=== PATIENT | male | born 1935 | race Caucasian/White ===

== ENCOUNTER → 2018-08-17 08:57 | Outpatient (CLI) | payer MEDICARE, OTHER, SELFPAY ==
[2018-08-17 11:18] LABS: Add Manual Diff / Slide Review NO; Basophils Percent Auto 0.8 % (0-2); Eosinophils Percent Auto 3.3 % (2-4); Hematocrit 44.5 % (41-53); Hemoglobin 15.4 g/dL (13.5-17.5); Lymphocytes Percent Auto 20.9 % (25-40); Mean Corpuscular HGB Conc 34.5 % (30-36); Mean Corpuscular Volume 101.5 fL (80-100); Monocytes Percent Auto 11.5 % (3-14); Neutrophils Absolute Auto 3000 /uL (3000-5900); Neutrophils Percent Auto 63.5 % (50-75); Platelet Count 146 X10^3/uL (150-400); Red Blood Cell Count 4.38 X10^6/uL (4.5-5.9); Red Cell Distribution Width 13.6 % (11.6-14.8); White Blood Cell Count 4.8 X10^3/uL (4.5-11.0)
[2018-08-17 12:11] LABS: BUN Creatinine Ratio 11.7 (6-22); Blood Urea Nitrogen 14 mg/dL (9-20); Carbon Dioxide 26 mmol/L (22-32); Chloride 107 mmol/L (98-107); Glucose 94 mg/dL (80-110); HEMOLYSIS < 15 (0-50); Potassium 4.6 mmol/L (3.4-5.1); Sodium 145 mmol/L (137-145)
== END ==
PROVIDERS: PCP Internal Medicine; Visit Provider Internal Medicine
DX: N18.9 Chronic kidney disease, unspecified (principal); I10 Essential (primary) hypertension; D69.6 Thrombocytopenia, unspecified
CPT/HCPCS: 36415; 80048; 85025

== ENCOUNTER 2019-02-03 06:34 | Emergency (ER) | payer MEDICARE, OTHER, SELFPAY ==
[2019-02-03 06:48] VITALS: BP 175/101; PULSE 72; RESP 18; TEMP 36.6; O2SAT 98; BMI 24.4
--- NOTE | 2019-02-03 06:59 | ED_ITS ---
HPI - Epistaxis <Phillip Rosen DO - Last Filed: 02/03/19 18:18> General Chief complaint: Nasal Problem Stated complaint: nose bleed Time Seen by Provider: 02/03/19 06:54 Source: patient and EMS Mode of arrival: EMS Limitations: no limitations History of Present Illness HPI Narrative: Patient is an 83-year-old male here for evaluation of a nosebleed. He states that he has never had a nosebleed in the past. He is not on any anticoagulation. He stated that he woke up this morning with bleeding. He states that was coming out of both sides of his nose. He attempted to stop it at home with pressure but was unable to. He called 911. When EMS arrived they used Afrin which seemed to improve his symptoms. They also gave him 1 nitro pill for a blood pressure with a systolic greater than 200. Patient does have a history of blood pressure but he states he takes at home and is normally not greater than 140 systolic. Patient denies any trauma. Related Data Home Medications Medication Instructions Recorded Confirmed metoprolol succinate [Toprol XL] 50 mg PO QDAY #0 06/07/12 carvedilol [Coreg] #0 08/03/16 lisinopril 10 mg PO QDAY #0 08/17/16 Allergies Allergy/AdvReac Type Severity Reaction Status Date / Time No Known Drug Allergies Allergy Verified 02/03/19 06:55 Review of Systems <Phillip Rosen DO - Last Filed: 02/03/19 18:18> Constitutional Denies fever(s) and Denies headache(s) ENT Ears, Nose, Mouth, and Throat: Denies headache(s), Reports epistaxis and Denies sore throat Cardiovascular Denies chest pain and Denies dyspnea Respiratory Denies dyspnea Gastrointestinal Gastrointestinal: Denies abdominal pain and Denies nausea Integumentary/Breasts Denies rash Neurologic Denies headache(s) Hematologic/Lymphatic Denies easy bleeding and Reports easy bruising PFSH <Phillip Rosen DO - Last Filed: 02/03/19 18:18> Medical History Hypertension (Acute) Thrombocytopenia (Acute) Social History Smoking Status: Former smoker Social History (Reviewed 02/03/19 @ 06:58 by DAVEY Martino Smoking Status: Former smoker Exam <Phillip Rosen DO - Last Filed: 02/03/19 18:18> Initial Vital Signs Initial Vital Signs: Vital Signs Temperature 98 F 02/03/19 06:48 Pulse Rate 72 02/03/19 06:48 Respiratory Rate 18 02/03/19 06:48 Blood Pressure 175/101 H 02/03/19 06:48 Pulse Oximetry 98 02/03/19 06:48 Const General: cooperative, comfortable, well developed, well groomed and No acute distress Orientation: alert, awake and oriented x3 HENMT Head: normal to inspection and normocephalic Nose: external nose normal, nares normal, septum normal, No epistaxis and No nasal discharge Face and sinus: normal facial exam Mouth: oral mucosae normal Throat: posterior oropharynx normal Resp Effort & Inspection: normal respiratory effort Auscultation: clear to auscultation bilaterally Cardio Rate: regular rate Pulses: radial pulses present Skin Lesions: no lesions Rashes: no rashes Psych Appearance: grossly normal and well kempt <DO Jonathan Rueda Last Filed: 02/03/19 08:26> Initial Vital Signs Initial Vital Signs: Vital Signs Temperature 98 F 02/03/19 06:48 Pulse Rate 72 02/03/19 06:48 Respiratory Rate 18 02/03/19 06:48 Blood Pressure 175/101 H 02/03/19 06:48 Pulse Oximetry 98 02/03/19 06:48 Course <DO Jonathan Martino Last Filed: 02/03/19 18:18> Orders Ordered: ED Orders 02/03/19 07:15 Basic Metabolic Panel Stat Complete Blood Count AUTO DIFF Stat Partial Thromboplastin Time Stat Prothrombin Time INR Stat Vital Signs - 8 hr 02/03/19 06:48 02/03/19 07:40 02/03/19 07:43 Temperature 98 F Pulse Rate 72 63 Respiratory Rate 18 18 Blood Pressure 175/101 H Blood Pressure [Right Arm] 172/87 H Pulse Oximetry 98 97 02/03/19 08:12 02/03/19 08:17 Temperature Pulse Rate 63 66 Respiratory Rate 16 20 Blood Pressure Blood Pressure [Right Arm] 150/92 H Pulse Oximetry 95 96 <DO Jonathan Rueda Last Filed: 02/03/19 08:26> Orders Ordered: ED Orders 02/03/19 07:15 Basic Metabolic Panel Stat Complete Blood Count AUTO DIFF Stat Partial Thromboplastin Time Stat Prothrombin Time INR Stat Vital Signs - 8 hr 02/03/19 06:48 02/03/19 07:40 02/03/19 07:43 Temperature 98 F Pulse Rate 72 63 Respiratory Rate 18 18 Blood Pressure 175/101 H Blood Pressure [Right Arm] 172/87 H Pulse Oximetry 98 97 02/03/19 08:12 02/03/19 08:17 Temperature Pulse Rate 63 66 Respiratory Rate 16 20 Blood Pressure Blood Pressure [Right Arm] 150/92 H Pulse Oximetry 95 96 MDM - Epistaxis <Phillip Rosen DO - Last Filed: 02/03/19 18:18> Lab Data Result diagrams: 02/03/19 07:15 02/03/19 07:15 Lab Results 02/03/19 02/03/19 02/03/19 Range/Units 07:15 07:15 07:15 WBC 4.3 L (4.5-11.0) X10^3/uL RBC 4.32 L (4.5-5.9) X10^6/uL Hgb 15.2 (13.5-17.5) g/dL Hct 42.8 (41-53) % MCV 99.2 (80-100) fL MCH 35.1 H (26-34) PG MCHC 35.4 (30-36) % RDW 12.8 (11.6-14.8) % Plt Count 139 L (150-400) X10^3/uL Neut % (Auto) 63.7 (50-75) % Lymph % (Auto) 21.5 L (25-40) % [place] % (Auto) 11.1 (3-14) % Eos % (Auto) 3.2 (2-4) % Baso % (Auto) 0.5 (0-2) % Neut # (Auto) 2800 (2223-9857) /uL Lymph # (Auto) 900 L (8808-1456) /uL [place] # (Auto) 500 (0-900) /uL Eos # (Auto) 100 (0-450) /uL Baso # (Auto) 0 (0-100) /uL PT 11.1 (10.1-12.7) SECONDS INR 1.0 (0.9-1.3) APTT 30 (26.4-36.2) SECONDS Sodium 139 (137-145) mmol/L Potassium 4.4 (3.4-5.1) mmol/L Chloride 107 (98-107) mmol/L Carbon Dioxide 24 (22-32) mmol/L BUN 19 (9-20) mg/dL Creatinine 1.20 (0.66-1.25) mg/dL Estimated GFR 57.8 L (>60) mL/min BUN/Creatinine Ratio 15.8 (6-22) Glucose 113 H (80-110) mg/dL Calcium 9.0 (8.4-10.2) mg/dL MDM Narrative Medical decision making narrative: Patient continues to be slightly hypertensive however is not having a nosebleed time my evaluation. Given his history of thrombocytopenia will check coags and CBC. Care turned over to Dr. Kaufman to follow up on labs and disposition. <Brain Kaufman, - Last Filed: 02/03/19 08:26> Lab Data Lab Results 02/03/19 02/03/19 02/03/19 Range/Units 07:15 07:15 07:15 WBC 4.3 L (4.5-11.0) X10^3/uL RBC 4.32 L (4.5-5.9) X10^6/uL Hgb 15.2 (13.5-17.5) g/dL Hct 42.8 (41-53) % MCV 99.2 (80-100) fL MCH 35.1 H (26-34) PG MCHC 35.4 (30-36) % RDW 12.8 (11.6-14.8) % Plt Count 139 L (150-400) X10^3/uL Neut % (Auto) 63.7 (50-75) % Lymph % (Auto) 21.5 L (25-40) % [place] % (Auto) 11.1 (3-14) % Eos % (Auto) 3.2 (2-4) % Baso % (Auto) 0.5 (0-2) % Neut # (Auto) 2800 (2003-5109) /uL Lymph # (Auto) 900 L (6050-8002) /uL [place] # (Auto) 500 (0-900) /uL Eos # (Auto) 100 (0-450) /uL Baso # (Auto) 0 (0-100) /uL PT 11.1 (10.1-12.7) SECONDS INR 1.0 (0.9-1.3) APTT 30 (26.4-36.2) SECONDS Sodium 139 (137-145) mmol/L Potassium 4.4 (3.4-5.1) mmol/L Chloride 107 (98-107) mmol/L Carbon Dioxide 24 (22-32) mmol/L BUN 19 (9-20) mg/dL Creatinine 1.20 (0.66-1.25) mg/dL Estimated GFR 57.8 L (>60) mL/min BUN/Creatinine Ratio 15.8 (6-22) Glucose 113 H (80-110) mg/dL Calcium 9.0 (8.4-10.2) mg/dL MDM Narrative Medical decision making narrative: Patient received in sign-out from other provider at the end of their shift. I have performed an independent history and physical and have no significant additional findings. Patient was observed for over an hour in the department, ambulated twice and had no recurrence of bl eeding. Exam noted fresh blood with minimal clots in the nares and no active bleeding. Patient denies swallowing any blood. Labs reviewed and unremarkable. patient remained slightly hypertensive but asymptomatic. Patient and given extensive return precautions and both verbalized their understanding of these precautions. Discharge plan discussed and agreed upon Discharge Plan Departure Patient Disposition: Home Clinical Impression: Epistaxis Discharge Date/Time: 02/03/19 08:34 Interventions: ED Discharge Assessment Last Done: 02/03/19 08:34 Instructions: DI for Nosebleed Activity Restrictions/Additional Instructions: *You have been diagnosed with [ acute anterior epistaxis ] *What to do: * do not blow your nose, stick your finger in her nose, or disturb nose for the next 24 hr. If you must sneeze please sneeze out your mouth like we talked about *Follow up with your primary care provider or ENT doctor in 2-3 days, call for an appointment. Let them know you were seen in the Emergency Department and that we ask that you be seen in follow up *Return to ER if you should have any new, worsening or concerning symptoms * if you are bleeding starts again at home please place a portion of a cotton ball in your nostril and squirt some of the Afrin you were given in your nose. Apply the nose clamp and uses a watch or o'clock to time yourself for 15 min. At the end 15 min recheck for bleeding, if you continue to bleed please repeat the process for another 15 min. If at the end of 30 min you still have bleeding you should return to the emergency department Prescriptions: No Action metoprolol succinate [Toprol XL] 50 MG tablet extended release 24 hr 50 mg PO QDAY Qty: 0 RF: 0 carvedilol [Coreg] 25 MG tablet Qty: 0 RF: 0 lisinopril 10 MG tablet 10 mg PO QDAY Qty: 0 RF: 0 Referrals: Pee Mason MD [Physician] -
[2019-02-03 07:24] LABS: Add Manual Diff / Slide Review NO; Basophils Absolute Auto 0 /uL (0-100); Basophils Percent Auto 0.5 % (0-2); Eosinophils Absolute Auto 100 /uL (0-450); Eosinophils Percent Auto 3.2 % (2-4); Hematocrit 42.8 % (41-53); Hemoglobin 15.2 g/dL (13.5-17.5); Lymphocytes Absolute Auto 900 /uL (1100-4500); Lymphocytes Percent Auto 21.5 % (25-40); Mean Corpuscular HGB Conc 35.4 % (30-36); Mean Corpuscular Hemoglobin 35.1 PG (26-34); Mean Corpuscular Volume 99.2 fL (80-100); Monocytes Absolute Auto 500 /uL (0-900); Monocytes Percent Auto 11.1 % (3-14); Neutrophils Absolute Auto 2800 /uL (1500-7000); Neutrophils Percent Auto 63.7 % (50-75); Platelet Count 139 X10^3/uL (150-400); Red Blood Cell Count 4.32 X10^6/uL (4.5-5.9); Red Cell Distribution Width 12.8 % (11.6-14.8); White Blood Cell Count 4.3 X10^3/uL (4.5-11.0)
[2019-02-03 07:38] LABS: Prothrombin Time 11.1 SECONDS (10.1-12.7)
[2019-02-03 07:40] VITALS: PULSE 63; RESP 18; O2SAT 97
[2019-02-03 07:41] LABS: PTT Partial Thromboplastin Tim 30 SECONDS (26.4-36.2)
[2019-02-03 07:42] LABS: BUN Creatinine Ratio 15.8 (6-22); Blood Urea Nitrogen 19 mg/dL (9-20); Carbon Dioxide 24 mmol/L (22-32); Chloride 107 mmol/L (98-107); Estimated Glomerular Filt Rate 57.8 mL/min (>60); Glucose 113 mg/dL (80-110); HEMOLYSIS < 15 (0-50); Potassium 4.4 mmol/L (3.4-5.1); Sodium 139 mmol/L (137-145)
[2019-02-03 07:43] VITALS: BP 172/87
[2019-02-03 08:12] VITALS: BP 150/92; PULSE 63; RESP 16; O2SAT 95
[2019-02-03 08:17] VITALS: PULSE 66; RESP 20; O2SAT 96
--- NOTE | 2019-02-03 08:18 | PC.NURSE ---
Patient was able to get up and walk around the ER without any nose bleeds.
[2019-02-03 08:34] VITALS: BP 150/92; PULSE 65; RESP 18; O2SAT 95
== END 2019-02-03 08:34 | disposition home or self-care (01) ==
PROVIDERS: Emergency Medicine; Emergency Provider Emergency Medicine; PCP Internal Medicine
DX: R04.0 Epistaxis (principal); I10 Essential (primary) hypertension
CPT/HCPCS: 36415; 80048; 85025; 85610; 85730; 99283

== ENCOUNTER → 2019-02-20 09:46 | Outpatient (CLI) | payer MEDICARE, OTHER, SELFPAY ==
[2019-02-20 10:26] LABS: Add Manual Diff / Slide Review NO; Basophils Absolute Auto 0 /uL (0-100); Basophils Percent Auto 0.8 % (0-2); Eosinophils Absolute Auto 100 /uL (0-450); Eosinophils Percent Auto 2.7 % (2-4); Hematocrit 43.6 % (41-53); Hemoglobin 15.1 g/dL (13.5-17.5); Lymphocytes Absolute Auto 1200 /uL (1100-4500); Lymphocytes Percent Auto 29.2 % (25-40); Mean Corpuscular HGB Conc 34.7 % (30-36); Mean Corpuscular Volume 100.7 fL (80-100); Monocytes Absolute Auto 500 /uL (0-900); Monocytes Percent Auto 11.9 % (3-14); Neutrophils Absolute Auto 2300 /uL (1500-7000); Neutrophils Percent Auto 55.4 % (50-75); Platelet Count 155 X10^3/uL (150-400); Red Blood Cell Count 4.33 X10^6/uL (4.5-5.9); Red Cell Distribution Width 13.2 % (11.6-14.8); White Blood Cell Count 4.1 X10^3/uL (4.5-11.0)
[2019-02-20 10:52] LABS: Blood Urea Nitrogen 18 mg/dL (9-20); Calcium 9.3 mg/dL (8.4-10.2); Carbon Dioxide 24 mmol/L (22-32); Chloride 106 mmol/L (98-107); Estimated Glomerular Filt Rate 57.8 mL/min (>60); Glucose 100 mg/dL (80-110); HEMOLYSIS < 15 (0-50); Potassium 4.1 mmol/L (3.4-5.1); Sodium 139 mmol/L (137-145)
== END ==
PROVIDERS: PCP Internal Medicine; Visit Provider Internal Medicine
DX: N18.9 Chronic kidney disease, unspecified (principal); D70.8 Other neutropenia
CPT/HCPCS: 36415; 80048; 85025

== ENCOUNTER → 2019-08-13 08:20 | Outpatient (CLI) | payer MEDICARE, OTHER, SELFPAY ==
[2019-08-13 09:02] LABS: Add Manual Diff / Slide Review NO; Basophils Absolute Auto 0 /uL (0-100); Basophils Percent Auto 0.8 % (0-2); Eosinophils Absolute Auto 100 /uL (0-450); Eosinophils Percent Auto 2.6 % (2-4); Hematocrit 46.1 % (41-53); Lymphocytes Absolute Auto 1100 /uL (1100-4500); Lymphocytes Percent Auto 25.3 % (25-40); Mean Corpuscular HGB Conc 34.6 % (30-36); Mean Corpuscular Hemoglobin 35.4 PG (26-34); Mean Corpuscular Volume 102.1 fL (80-100); Monocytes Absolute Auto 600 /uL (0-900); Neutrophils Absolute Auto 2500 /uL (1500-7000); Neutrophils Percent Auto 57.3 % (50-75); Platelet Count 144 X10^3/uL (150-400); Red Blood Cell Count 4.51 X10^6/uL (4.5-5.9); Red Cell Distribution Width 13.3 % (11.6-14.8); White Blood Cell Count 4.4 X10^3/uL (4.5-11.0)
[2019-08-13 09:15] LABS: BUN Creatinine Ratio 13.8 (6-22); Blood Urea Nitrogen 18 mg/dL (9-20); Calcium 9.5 mg/dL (8.4-10.2); Carbon Dioxide 25 mmol/L (22-32); Chloride 106 mmol/L (98-107); Estimated Glomerular Filt Rate 52.7 mL/min (>60); Glucose 109 mg/dL (80-110); HEMOLYSIS < 15 (0-50); Potassium 4.6 mmol/L (3.4-5.1); Sodium 140 mmol/L (137-145)
== END ==
PROVIDERS: PCP Internal Medicine; Visit Provider Internal Medicine
DX: N18.9 Chronic kidney disease, unspecified (principal); D70.8 Other neutropenia
CPT/HCPCS: 36415; 80048; 85025

== ENCOUNTER → 2019-08-27 11:44 | Outpatient (CLI) | payer MEDICARE, OTHER, SELFPAY ==
--- NOTE | 2019-08-27 | DI.CT.S_ITS ---
PROCEDURE: CT CHEST ABD PEL W CON INDICATIONS: Enlarged lymph nodes, unspecified TECHNIQUE: After the administration of oral and intravenous contrast, 5 mm thick sections acquired from the lung apices to the symphysis. 5 mm coronal and sagittal reformats were performed, with additional 7 mm coronal MIP reformats through the lungs. For radiation dose reduction, the following was used: automated exposure control, adjustment of mA and/or kV according to patient size. COMPARISON: None. FINDINGS: Image quality: Excellent. CHEST: Lungs and pleura: There is a 5 mm nodule in the left upper lobe (series 3 image 164). No acute airspace opacities. No pleural effusions or pneumothorax. Central and peripheral airways appear patent and normal in caliber. Mediastinum: Heart size is normal. No pericardial effusion. No mediastinal or hilar adenopathy by size criteria. Thoracic aorta and central pulmonary arteries are normal in size. Esophagus is normal in caliber. No hiatal hernia. Chest wall: No axillary or supraclavicular adenopathy by size criteria. Thyroid gland is normal. ABDOMEN: Solid organs: Liver is normal in size and enhancement. Gallbladder is normal. Biliary system is non dilated. Pancreas enhances normally. Spleen is normal in size and enhancement. No adrenal nodules. Kidneys demonstrate normal size and enhancement, without hydronephrosis. Peritoneum and bowel: Possible focal thickening of cecum. Bowel loops demonstrate normal wall thickness and caliber. There are colonic diverticula. No findings to suggest acute diverticulitis. No free fluid or air. Nodes and vessels: No retroperitoneal or mesenteric adenopathy by size criteria. Aorta and inferior vena cava are normal in size. Moderate to severe atherosclerosis. Miscellaneous: No ventral hernias. PELVIS: Genitourinary: Bladder wall thickness is normal. Enlarged prostate. Miscellaneous: There is a 1.6 x 2.1 cm right inguinal lymph node. Bones: No suspicious bony lesions. No vertebral body compression fractures. IMPRESSION: 1. Enlarged right inguinal lymph node. 2. No lymphadenopathy elsewhere. 3. Possible short segment focal thickening of cecum versus artifact. Recommend endoscopic examination for further evaluation. 4. A 5 mm left upper lobe lung nodule. Please see enclosed followup clinician. 5. Enlarged prostate. 6. Possible focal thickening of cecum and artifact from peristalsis. Recommend lower endoscopy for further evaluation. Fleischner Society criteria for SOLID lung nodule followup. Nodule size (mm)Low-risk patientHigh-risk patient?4No follow-up neededFollow-up at 12 mo; if no change, no further follow-up>6-9Tfopjg-be CT at 12 mo; if no change, no further follow-up needed.Initial follow-up CT at 6-12 mo, then 18-24 mo if no change. >6-8Initial follow-up CT at 6-12 mo, then 18-24 mo if no change. Initial follow-up CT at 3-6 mo, then 9-12 mo and 24 mo if no change. >8Follow-up CT at 3, 9, 24 mo. Or PET and/or biopsy.Same as for low-risk pts. Fleischner Society criteria for SUB-SOLID lung nodule followup. Solitary pure ground-glass nodules5 mm or lessNo followup needed. >5 mm3 mo follow-up CT to confirm persistence. Then annual CT for 3 years. Part-solid nodules3 mo follow-up CT to confirm persistence. If persistent with solid component <5 mm, annual CT for at least 3 years. If solid component is 5 mm or more, biopsy or surgical resection. Consider PET-CT for lesions > 10 mm. Multiple sub-solid nodulesPure ground glass nodules [address] at 2 and 4 years. Pure ground glass nodules >5 mm without dominant lesion. [address] to confirm persistence, then annual followup CT for at least 3 years. Dominant nodule(s) with part-solid or solid component. [address] to confirm persistence. If persistent, consider biopsy or surgical resection, ken if lesions have >5 mm solid component. Dictated by: Jas Urban M.D. on 08/27/2019 at 15:59 Approved by: Jas Urban M.D. on 08/27/2019 at 17:57
--- NOTE | 2019-09-17 14:44 | ONC.MSW ---
Description: T/C Activity: RECORDS MANAGEMENT CLERK returned pt's call re: new referral and questions. Left message requesting return call.
== END ==
PROVIDERS: PCP Internal Medicine; Visit Provider Internal Medicine
DX: R59.0 Localized enlarged lymph nodes (principal); K57.90 Diverticulosis of intestine, part unspecified, without perforation or abscess without bleeding; R91.1 Solitary pulmonary nodule; N40.0 Benign prostatic hyperplasia without lower urinary tract symptoms
CPT/HCPCS: 71260; 74177; Q9967

== ENCOUNTER 2019-09-03 09:36 | Day surgery (SDC) | payer MEDICARE, OTHER, SELFPAY ==
[2019-08-28 10:27] VITALS: BMI 26.7
[2019-09-03] VITALS (7 sets, daily range): BP systolic 112–162; BP diastolic 75–85; PULSE 54–73; RESP 11–16; TEMP 36.3–36.4; O2SAT 91–97; BMI 26.7
--- NOTE | 2019-09-03 | PATH_ITS ---
[facility] Accession Number: [id number] . 01 Material submitted: . PART A: lymph node - RIGHT INGUINAL LYMPH NODE PART B: lymph node - RIGHT INGUINAL LYMPH NODE . 01 Clinical history: . B: B PLUS FIXATIVE . 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 01 Comment: These findings correlate with the reported CD10 positive clonal B-cell population of small/intermediate size identified on a tandem flow cytometric analysis (see [phone]). . . 01 Electronically signed: . Jessica Alvarez MD, Pathologist NPI- [id number] . 01 Gross description: . (A) Received in formalin, labeled right inguinal lymph node, is a jesus rubbery lymph node (3.4 x 2.5 x 1.3 cm). Serially sectioned and entirely submitted in cassettes A1-A5. (B) Received in B-Plus Fix, labeled right inguinal lymph node, is a lui-white rubbery lymph node (2.1 x 1.8 x 1.2 cm). Serially sectioned and entirely submitted in cassettes B1-B3. . Note: Per the requisition, the following was also received: Slides and RPMI x2. ([id number]) /[facility] 09/04/2019 1638 Local . 01 Microscopic: . Sections demonstrate lymphoid tissue with effacement of the usual architecture; the capsule is focally effaced. The tissue has a follicular pattern, with poorly defined densely packed follicles and ill-defined mantle zones. The follicles appear solid, lacking polarization and without a prominent starry-jonatan pattern. Cells are small to medium sized, with angulated nuclei, inconspicuous nucleoli, and scant cytoplasm (centrocytes); admixed are some larger cells with round/oval nuclei, vesicular chromatin and visible peripheral nucleoli (centroblasts). There is no evidence of active inflammation, granulomata, Erick-Ginny/Hodgkin cells, eosinophilia, fibrous sclerosis, or features of metastasis. . In order to more fully characterize this process, immunohistochemical stains were indicated; these were performed on Block A1. The controls reacted appropriately. See below for Laboratory information. . Findings: CD3: Small lymphocytes positive (membranous/strong); predominant in parafollicular zones. Scattered T-cells in follicles. CD10: Small lymphocytes positive (membranous/strong); predominant in follicles. Scattered B-cells in parafollicular areas. PAX5: Small lymphocytes positive (membranous/strong); greatest density in follicles; mantle zones visible. Also present in paracortical T-zones in lesser density. CD21: Greatly expanded LONGTERM networks present within the follicles (membranous/moderate) BCL-2: Overwhelming positivity in follicles, mantle zones and in paracortical T-zones. (Cytoplasmic/strong). BCL-6: Positivity in follicles, mantle zones and, in lesser density, in small scattered cells in paracortical T-zones. (nuclear / moderate). Cyclin D1: Negative with positive internal control (nuclear/strong) . Ki-67: 10-15% overall; slightly greater in follicles (nuclear/strong) . 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 Technical Note: The immunohistochemistry stains reported were performed at [facility] ([address], [facility] [address]). They were developed and their performance characteristics determined by [employer] They have not been cleared or approved by the U.S. Food and Drug Administration, although such approval is not required for analyte-specific reagents of this type. . 01 Pathologist provided ICD-10: C82.90 . 01 CPT . 248394, 631913, S30694, L38227 Performed at: 01 [facility] [address], [place], [place] [id number] MD Artis Bolivar MD Phone: [phone]
[2019-09-03] MEDS: LACTATED RINGERS 1,000 ML 100 ML IV (10:22)
--- NOTE | 2019-09-03 10:49 | PM.PREOP ---
Pre-operative Note Interval Note History & Physical reviewed/Exam performed by Physician: Yes Changes to H&P: No
[2019-09-03] MEDS: CEFAZOLIN 2 GM/100 ML FROZ.PIGGY IV (11:08)
--- NOTE | 2019-09-03 11:24 | SUR.OPER ---
Supine on padded OR bed, head on pillow, arms secured on padded arm boards at <90 degrees abduction, legs uncrossed, safety belt at thigh, tape over blanket over lower legs.
[2019-09-03] MEDS: BUPIVACAINE 0.5% W/ EPI (PF) VIAL 30 ML INJ (11:31)
--- NOTE | 2019-09-03 11:32 | SUR.OPER ---
GLASSES IN LABELED BAG TO PACU WITH PATIENT
--- NOTE | 2019-09-03 12:16 | PM.OP.1 ---
Operative Date/Time/Diagnoses Date of procedure: 09/03/19 Time of procedure: 12:16 Pre-op diagnosis: Diffuse lymphadenopathy rule out lymphoma Post-op diagnosis: same Procedure & Clinicians Procedure: Excision of right inguinal lymph node Same procedure as scheduled: Yes Indications: Diagnostic Surgeon: Rudolph Kaufman Click Yes if Unassisted: Yes Anesthesia Type: General Operative Notes Findings: 4 by 2 cm lymph node right groin removed Closure Type: primary Specimen(s): other (Dry in alcohol slide. Specimens for flow cytometry. Formalin specimen.) Prosthetic devices, grafts, tissues, transplants, or devices: None Estimated Blood Loss (mL): 5 Blood products transfused: none Procedure in detail: The patient is placed supine on the operating room table and underwent general LMA anesthesia. He was prepped and draped in the usual fashion. Local anesthetic was infiltrated around the large lymph node. It vision made paralleling the crease in the groin was carried down through the subcu fat to the level lymph node. The tissue holding lymph node in place was all divided and 3 0 Vicryl ties and were used to tie everything whether it was vascular containing or not. This was done to reduce the risk of lymph leak.. The node was removed and submitted in specimen containers. The soft tissues reapproximated with interrupted 3 0 Vicryl. The skin was closed running 4 0 Vicryl subcuticular stitch and Steri-Strips. Complications: none Post-operative Condition: stable Disposition: PACU
== END 2019-09-03 13:21 | disposition home or self-care (01) ==
PROVIDERS: Family Provider Internal Medicine; PCP Internal Medicine; Visit Provider Specialist
PROC: (CPT 38531; principal; 2019-09-03 11:00)
DX: C82.95 Follicular lymphoma, unspecified, lymph nodes of inguinal region and lower limb (principal); I10 Essential (primary) hypertension
CPT/HCPCS: 38531; J0690; J2250; J2405; J2704; J3010

== ENCOUNTER → 2020-05-19 12:05 | Outpatient (CLI) | payer MEDICARE, OTHER, SELFPAY ==
--- NOTE | 2020-05-19 12:06 | DI.US.S_ITS ---
PROCEDURE: US EXTREMITY NONVASC UPPER LT INDICATIONS: LEFT FOREARM SOFT TISSUE MASS TECHNIQUE: Real-time scanning was performed of the left wrist , with image documentation. COMPARISON: None. FINDINGS: Complex fluid collection corresponding to the palpable abnormality measuring 5.9 x 0.8 by 2.9 cm with internal fluid component containing fine low level echoes. Doppler assessment demonstrates no vascularity. IMPRESSION: Complex fluid collection corresponding to the palpable abnormality. Findings are nonspecific and differential would include both benign and malignant etiologies. If indicated, soft tissue MRI could be performed for further assessment. Dictated by: Maixm BLANCO Interpreted: Shade Denson MD on 05/19/2020 at 14:52 Approved by: Shade Denson M.D. on 05/19/2020 at 17:40
== END ==
PROVIDERS: Family Provider Internal Medicine; PCP Internal Medicine; Referring Provider Internal Medicine Hematology & Oncology; Visit Provider Internal Medicine Hematology & Oncology
DX: R22.32 Localized swelling, mass and lump, left upper limb (principal)
CPT/HCPCS: 76882

== ENCOUNTER → 2020-05-27 13:06 | Outpatient (CLI) | payer MEDICARE, OTHER, SELFPAY ==
--- NOTE | 2020-05-27 13:19 | DI.CT.S_ITS ---
PROCEDURE: CT CHEST WO CON INDICATIONS: SOLITARY PULMONARY NODULE TECHNIQUE: Noncontrast 2.0-2.5 mm thick sections acquired from the pulmonary apices to the posterior costophrenic angles. 7 mm thick axial MIP and 5 mm coronal and sagittal reformats were then acquired. A low radiation dose technique was utilized. COMPARISON: [facility], CT, CT CHEST ABD PEL W CON, 08/27/2019, 12:27. FINDINGS: Image quality: Diagnostic, given the low radiation dose technique. Lungs and pleura: Right fissural nodule appears unchanged measuring approximately 6 mm. Unchanged to slightly decreased in size 4 mm right middle lobe pulmonary nodule on image 240. Scattered scarring/atelectasis. No acute consolidation. Airway thickening in keeping with nonspecific bronchitis and/or reactive airways disease. Partially calcified nodule in the right upper lobe is unchanged on image 19. Mediastinum: Heart size is normal. Coronary artery calcifications are present. No pericardial effusion. No mediastinal adenopathy by size criteria. Thoracic aorta and central pulmonary arteries are normal in size. Esophagus is normal in caliber. No hiatal hernia. Bones and chest wall: No suspicious bony lesions. No vertebral body compression fractures. No axillary or supraclavicular adenopathy by size criteria. Thyroid gland negative . Abdomen: Visualized upper abdomen solid organs and bowel loops appear normal in the absence of contrast. IMPRESSION: Overall, grossly stable appearance of multiple bilateral subcentimeter pulmonary nodules since 08/27/19. Recommend continued follow-up with [address] chest for definitive assessment. In Fleischner Society criteria for SOLID lung nodule followup. Nodule size (mm)Low-risk patientHigh-risk patient<6 (single or multiple)No routine followup.Optional CT at 12 months. 6-8 (single or multiple)CT at 6-12 months, then optional CT at 18-24 mo.CT at 6-12 months, then CT at 18-24 months. >8 (single)CT at 3 months, PET-CT, or biopsy. Same as for low-risk pts. >8 (multiple)CT at 3-6 months, then optional CT at 18-24 mo.CT at 3-6 months, then CT at 18-24 months. Fleischner Society criteria for SUB-SOLID lung nodule followup. Solitary pure ground-glass nodules<6 mm (ground glass or part solid)No followup needed. 6 mm or larger (ground glass)CT at 6-12 months to confirm persistence, then CT every 2 years until 5 years.6 mm or larger (part solid)CT at 3-6 months to confirm persistence, then annual CT until 5 years if unchanged and solid component remains <6 mm. Multiple sub-solid nodules<6 mmCT at 3-6 months, then CT consider at 2 & 4 years for high risk patients. [address] at 3-6 months. Subsequent management based on most suspicious lesions. Recommendations do not apply to lung cancer screening, patients with immunosuppression, or patients with known primary cancer. Dictated by: Boom Cameron M.D. on 05/27/2020 at 16:49 Approved by: Boom Cameron M.D. on 05/27/2020 at 16:58
== END ==
PROVIDERS: Family Provider Internal Medicine; PCP Internal Medicine; Referring Provider Internal Medicine; Visit Provider Internal Medicine
DX: R91.8 Other nonspecific abnormal finding of lung field (principal); I25.10 Atherosclerotic heart disease of native coronary artery without angina pectoris
CPT/HCPCS: 71250

== ENCOUNTER → 2020-07-03 15:39 | Outpatient (CLI) | payer MEDICARE, OTHER, SELFPAY ==
--- NOTE | 2020-07-03 | DI.MRI.S_ITS ---
PROCEDURE: MR WRIST LT WO CON INDICATIONS: PAIN IN LEFT WRIST. 2 MASSES TECHNIQUE: Noncontrast coronal proton density fast spin echo and T2 fast spin echo with fat saturation; coronal 3-D gradient echo, axial T1 spin echo and T2 fast spin echo with fat saturation, sagittal T1 spin echo through the wrist. COMPARISON: [facility], US, US EXTREMITY NONVASC UPPER LT, 05/19/2020, 12:22. FINDINGS: Image quality: Excellent. Bones and cartilage: Moderate osteoarthritic changes throughout wrist joints are seen with joint space narrowing, subchondral sclerosis and mild edema. Nonspecific small intraosseous cyst formation throughout visualized carpal bones are also seen. No fracture or dislocation. No evidence of avascular necrosis. No suspicious intraosseous lesion. Carpal ligaments: The scapholunate and lunotriquetral ligaments appear intact. In the absence of intra-articular contrast, the extrinsic carpal ligaments are not well identified. On sagittal images, the pisohamate ligament appears intact. Triangular fibrocartilage complex: There is suggestion of complex tear involving triangular fibrocartilage near its radial insertion with communicating fluid between radiocarpal joint and distal radial ulnar joint. The adjacent meniscal homolog appears normal in the absence of intra-articular contrast. The extensor carpi ulnaris tendon is normal in location and morphology. Tendons and soft tissues: The carpal tunnel structures appear normal, including the median nerve. The ulnar nerve appears normal within Guyon's canal. Large lobulated cystic area is seen surrounding extensor radialis longus and brevis tendons measures in aggregate 2 x 3.5 x 11.8 cm in size extending from distal radial shaft level to the level of 1st metacarpal base most likely represent severe tenosynovitis in this region. There is a smaller fluid signal area surrounding extensor pollicis longus tendon at the level of distal radius extending to the level of radiocarpal joint and measures up to 0.9 x 1.2 x 2.8 cm in size. IMPRESSION: 1. Large cystic structure surrounding left extensor radialis longus and brevis tendons measures 2 x 3.5 x 11.8 cm in size most likely represent severe tenosynovitis. No evidence of tendon rupture. 2. Smaller cystic structure measures 0.9 x 1.2 x 2.8 centimeters in size surrounding extensor pollicis longus tendon at the level of distal radius/radial carpal joint also likely represent tenosynovitis. 3. No solid appearing soft tissue mass. Rest of the wrist tendons are grossly intact. 4. Suggestive of complex ranula fibrocartilage tear near its radial insertion. Scapholunate and lunotriquetral ligaments are intact. 5. Moderate diffuse wrist joint osteoarthritis. No fracture or dislocation. Dictated by: Roderick Navarro M.D. on 07/03/2020 at 16:54 Approved by: Roderick Navarro M.D. on 07/03/2020 at 17:16
== END ==
PROVIDERS: Family Provider Internal Medicine; PCP Internal Medicine; Referring Provider Orthopaedic Surgery; Visit Provider Orthopaedic Surgery
DX: M25.532 Pain in left wrist (principal); M67.834 Other specified disorders of tendon, left wrist; M19.032 Primary osteoarthritis, left wrist
CPT/HCPCS: 73221

== ENCOUNTER → 2021-05-18 08:03 | Outpatient (CLI) | payer MEDICARE, OTHER, SELFPAY ==
--- NOTE | 2021-05-18 08:04 | DI.CT.S_ITS ---
PROCEDURE: CT CHEST WO CON INDICATIONS: pulmonary nodules TECHNIQUE: Noncontrast 2.0-2.5 mm thick sections acquired from the pulmonary apices to the posterior costophrenic angles. 7 mm thick axial MIP and 5 mm coronal and sagittal reformats were then acquired. A low radiation dose technique was utilized. COMPARISON: [facility], CT, CT CHEST WO CON, 05/27/2020, 13:13. FINDINGS: Image quality: Diagnostic, given the low radiation dose technique. Lungs and pleura: A few small pulmonary nodules. For example: -left upper lobe 0.7 x 0.6 cm, (3/99), previously 0.8 x 0.7 cm on 05/27/2020, and more remotely is 0.8 x 0.7 cm on 08/27/2019. -left upper lobe 0.5 cm, (3/178), previously 0.5 cm in 2019. -right major fissure 0.4 cm, (3/186), previously 0.6 cm in 2019. -right middle lobe 0.6 cm, (3/226), previously 0.6 cm in 2019. -right major fissure inferior thickening is unchanged. No new or enlarging pulmonary nodules. Moderate emphysematous change predominantly at the upper lobes. The central airways are clear. There is minimal bronchiectasis and bronchial wall thickening. Mild dependent subpleural reticular thickening. No pleural effusion. No pneumothorax. Mediastinum: Heart size is normal. Aortic valvular calcification, mild. Three-vessel coronary artery calcifications. No pericardial effusion. No mediastinal adenopathy by size criteria. Thoracic aorta and central pulmonary arteries are normal in size. Esophagus is normal in caliber. No hiatal hernia. Bones and chest wall: No suspicious bony lesions. Kyphosis. Suspect mild height loss at L1 partially visualized, unchanged. No axillary or supraclavicular adenopathy by size criteria. Thyroid gland is atrophic. Abdomen: Visualized upper abdomen solid organs and bowel loops appear normal in the absence of contrast. IMPRESSION: 1. Several stable pulmonary nodules. Largest measuring up to 0.7 cm in the left upper lobe, unchanged compared to August 2019. -consider 1 more follow-up CT chest in 1 year to demonstrate greater than 2 years stability. 2. No new or enlarging pulmonary nodules. 3. No enlarged lymph nodes identified. Fleischner Society criteria for SOLID lung nodule followup. Nodule size (mm)Low-risk patientHigh-risk patient<6 (single or multiple)No routine followup.Optional CT at 12 months. 6-8 (single or multiple)CT at 6-12 months, then optional CT at 18-24 mo.CT at 6-12 months, then CT at 18-24 months. >8 (single)CT at 3 months, PET-CT, or biopsy. Same as for low-risk pts. >8 (multiple)CT at 3-6 months, then optional CT at 18-24 mo.CT at 3-6 months, then CT at 18-24 months. Fleischner Society criteria for SUB-SOLID lung nodule followup. Solitary pure ground-glass nodules<6 mm (ground glass or part solid)No followup needed. 6 mm or larger (ground glass)CT at 6-12 months to confirm persistence, then CT every 2 years until 5 years.6 mm or larger (part solid)CT at 3-6 months to confirm persistence, then annual CT until 5 years if unchanged and solid component remains <6 mm. Multiple sub-solid nodules<6 mmCT at 3-6 months, then CT consider at 2 & 4 years for high risk patients. [address] at 3-6 months. Subsequent management based on most suspicious lesions. Recommendations do not apply to lung cancer screening, patients with immunosuppression, or patients with known primary cancer. Dictated by: Lucas Pedraza M.D. on 05/18/2021 at 8:35 Approved by: Lucas Pedraza M.D. on 05/18/2021 at 8:50
== END ==
PROVIDERS: Family Provider Internal Medicine; PCP Internal Medicine; Referring Provider Internal Medicine Hematology & Oncology; Visit Provider Internal Medicine Hematology & Oncology
DX: R91.8 Other nonspecific abnormal finding of lung field (principal)
CPT/HCPCS: 71250

== ENCOUNTER 2022-03-30 09:00 | Outpatient (RCR) | payer MEDICARE, OTHER, SELFPAY ==
--- NOTE | 2022-01-21 14:16 | PT.OIE ---
Current Diagnoses Unsteadiness on feet (01/25/22) Other abnormalities of gait and mobility (01/25/22) Weakness (01/25/22) Past Medical History (Last Updated 08/29/19 @ 09:58 by Xuan Christensen RN) Easy bruisability Enlarged prostate History of left hip replacement Hx of appendectomy Hx of bilateral cataract extraction (~2015) Hx of cardiac arrhythmia Hx of cataract Hypertension Thrombocytopenia Past Surgical History (Last Updated 08/28/19 @ 10:34 by Xuan Christensen RN) History of left hip replacement Hx of appendectomy Hx of bilateral cataract extraction (~2015) Visit Care Team Role Provider Type Arslan Jacobs MD Attending Provider Non-Staff Family Provider Primary Care Provider Referring Provider Specialty: Internal Medicine Address: [address] [place] [address], [facility] Email: Physical Therapy Initial Evaluation PT-OP-A Visit Information Start: 01/18/22 17:13 Freq: Status: Active Protocol: Document 01/21/22 09:02 [facility] (Rec: 01/21/22 09:37 [facility] [id number]) Out-Patient Physical Therapy Visit Information Visit Information Visit Type Initial Evaluation Visit Start Time 09:02 Visit Stop Time 09:43 Total Visit Minutes 41 Visit Number 1 Evaluation Information Evaluation Date 01/21/22 Precautions Precautions HTN, history of BPPV and Meniere's, wears hearing aids and glasses with progressive lenses PT-OP-B Current Condition Start: 01/18/22 17:13 Freq: Status: Active Protocol: Document 01/21/22 09:02 [facility] (Rec: 01/21/22 09:37 [facility] [id number]) Current Condition History of Current Condition Onset Date 5 years Current Complaints difficulty with balance History of Current Condition 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 Patient reports balance difficulties, has had multiple almostfalls, no specific situations, concerned won't be able to get up if falls. If goes for a walk carries a cane. Staggering noted by PT comes and goes but isn't uncommon. Denies dizziness at this time because I know what to do to avoid it. No exercises besides going for walks; walks up to 2 miles per day. Lives with , has stairs with railing, bars in shower. Treatment Goals Patient/Caregiver Goals IMprove balance, be more comfortable walking. Prior Functional Status Baseline Function- ADL's Independent Baseline Function- Mobility Independent Baseline Function- Gait independent without device Baseline Function- Recreation/Hobbies walking Current Functional Impairments (Reported) Functional Limitations- ADL's balance concerns Functional Limitations- Mobility/Gait uses cane outdoors Functional Limitations- Recreation/ needs cane to walk outdoors. Hobbies PT-OP-C Subjective Start: 01/18/22 17:13 Freq: Status: Active Protocol: Document 01/21/22 09:02 [facility] (Rec: 01/21/22 09:57 [facility] [id number]) Patient Questionnaires ABC- Activity Specific Balance Confidence Scale ABC Score 49 OP-PT Pain Assessment Comments Pain Comments patient deniesw pain PT-OP-D Balance Start: 01/18/22 17:13 Freq: Status: Active Protocol: Document 01/21/22 09:02 [facility] (Rec: 01/21/22 09:57 [facility] [id number]) OP-PT Balance Assessment Sitting Balance Static Sitting Balance Ability Normal Dynamic Sitting Balance Ability Good Standing Balance Static Standing Balance Ability Normal Standing Balance Comments see gbalance assessments Balance Tests Abreu Balance Test Abreu Balance Test Score 36 Wilcox Fall Scale Copyright Permission PT-OP-G Mobility & Gait Start: 01/18/22 17:13 Freq: Status: Active Protocol: Document 01/21/22 09:02 [facility] (Rec: 01/25/22 14:16 [facility] [id number]) OP Mobility Evaluation Bed Mobility Rolling indep Supine to and from Sit indep Transfers Sit to Stand indep, min to no use of hands OP Gait Assessment Gait Gait Assistance Required: Independent Able to Maintain Weight Bearing Status No During Gait Gait Deviations General Gait Pattern Decreased Stride Length, Decreased Feet Clearance,Wide Based Gait Factors Limiting Gait Function Factors Limiting Gait Function Poor Balance Stair Climbing Evaluation Evaluation Level of Assist On Stairs Independent Devices Stair Climbing Assistive Devices Left Railing,Right Railing Technique/Endurance Stair Climbing Direction Ascend and Descend PT-OP-H Neuro Start: 01/18/22 17:13 Freq: Status: Active Protocol: Document 01/21/22 09:02 [facility] (Rec: 01/25/22 14:16 [facility] [id number]) Sensation Evaluation Gross Sensation Gross Sensation WNL PT-OP-M Strength Start: 01/18/22 17:13 Freq: Status: Active Protocol: Document 01/21/22 09:02 [facility] (Rec: 01/25/22 14:16 [facility] [id number]) Hip Strength Hip Manual Muscle Testing charleen Flexion (L2) 4 Good Extension (S1) 4- Good- Abduction 4- Good- External Rotation 4 Good Internal Rotation 4 Good Knee Strength Knee Manual Muscle Testing charleen Flexion (S2) 5 Normal Extension (L3) 5 Normal Ankle/Foot Strength Ankle and Foot Manual Muscle Testing charleen Dorsiflexion (L4) 4 Good Plantarflexion (S1) 4 Good PT-OP-Q Treatments Start: 01/18/22 17:13 Freq: Status: Active Protocol: Document 01/21/22 09:02 [facility] (Rec: 01/25/22 14:16 [facility] [id number]) Self-Care/Home Management Treatment Education Patient Education Home Exercise Program,Safety Other Education use cane or trekking poles when taking walks issued written handout for SLS , tandem stand, december PT-OP-T Assessment and Plan Start: 01/18/22 17:13 Freq: Status: Active Protocol: Document 01/21/22 09:02 [facility] (Rec: 01/25/22 14:16 [facility] [id number]) Physical Therapy Assessment Rehab Potential Rehabilitation Potential Good Evaluation Complexity Number of Personal Factors/Comorbidities 1-2 Impairments Impairments Balance,Gait,Strength Goals Two Impairment unsteady gait Impairment Dynamic gait index 16/24 Short Term Goal (STG) Improve DGI score to at least 20/24 as measure of improved safety with gait in the home and community STG Duration 02/20/22 Supervisor Drying Goal (LTG) Improve DGI score to at least 22/24 as measure of improved safety with gait in the home and community. Patient able to resume taking regular walks for exercise regularly, using assistive device as needed for safety. LTG Duration 03/23/22 One Impairment balance dysfunction, high risk for falls Impairment Abreu Balance score 36/56; high risk for falls Short Term Goal (STG) Improve Abreu to at least 46/56 as measure of decrease in fall risk STG Duration 02/20/22 Custodial Goal (LTG) Improve Abreu to at least 51/56 as measure of decrease in fall risk and improved mobility in the home and community LTG Duration 03/23/22 Assessment Summary Assessment Patient presents to PT with c/ o decreased confidence in his balance and gait, hoping PT might be able to help. His dynamic gait index score and Abreu Balance score measured at PT evaluation indicate he is at high risk for falls. Manual muscle testing revealed weakness throughout his core LE's. Feel he would benefit from PT for strengthening, balance re-training, and gait training to improve his safety with mobility both at home and in the community. Discussed POC and patient is in agreement. He was instructed in initial balance exercises and issued a written handout today, demonstrating good understanding. Physical Therapy Plan Frequency and Duration Frequency of Treatment 2x/Week Duration of Treatment 8 wks Plan of Care Start Date 01/21/22 Plan of Care End Date 03/23/22 Therapeutic Interventions Therapeutic Interventions Aquatic Therapy,Balance Training,Gait Training,Home Exercise Program,Neuromuscular Re-education,Self-Care/Home Management,Therapeutic Activities,Therapeutic Exercises Modalities Cold Pack/Ice Massage,Hot Packs Next Visit Focus/Plan Next Note Type Treatment Note Next Visit Plan Review HEP, progress with balance and gait training activities, LE and core strengthening as tolerated.
--- NOTE | 2022-01-21 14:17 | PT.OPPOC ---
Physical, Occupational & Speech Therapy At [facility] Current Diagnoses Unsteadiness on feet (01/25/22) Other abnormalities of gait and mobility (01/25/22) Weakness (01/25/22) Visit Care Team Role Provider Type Arslan Jacobs MD Attending Provider Non-Staff Family Provider Primary Care Provider Referring Provider Specialty: Internal Medicine Address: [address] [place] [address], [facility] Email: Plan Of Care PT-OP-T Assessment and Plan Start: 01/18/22 17:13 Freq: Status: Active Protocol: Document 01/21/22 09:02 [facility] (Rec: 01/25/22 14:16 [facility] [id number]) Physical Therapy Assessment Rehab Potential Rehabilitation Potential Good Evaluation Complexity Number of Personal Factors/Comorbidities 1-2 Impairments Impairments Balance,Gait,Strength Goals Two Impairment unsteady gait Impairment Dynamic gait index 16/24 Short Term Goal (STG) Improve DGI score to at least 20/24 as measure of improved safety with gait in the home and community STG Duration 02/20/22 Hydrogeology Professor Goal (LTG) Improve DGI score to at least 22/24 as measure of improved safety with gait in the home and community. Patient able to resume taking regular walks for exercise regularly, using assistive device as needed for safety. LTG Duration 03/23/22 One Impairment balance dysfunction, high risk for falls Impairment Abreu Balance score 36/56; high risk for falls Short Term Goal (STG) Improve Abreu to at least 46/56 as measure of decrease in fall risk STG Duration 02/20/22 Longterm Goal (LTG) Improve Abreu to at least 51/56 as measure of decrease in fall risk and improved mobility in the home and community LTG Duration 03/23/22 Assessment Summary Assessment Patient presents to PT with c/ o decreased confidence in his balance and gait, hoping PT might be able to help. His dynamic gait index score and Abreu Balance score measured at PT evaluation indicate he is at high risk for falls. Manual muscle testing revealed weakness throughout his core LE's. Feel he would benefit from PT for strengthening, balance re-training, and gait training to improve his safety with mobility both at home and in the community. Discussed POC and patient is in agreement. He was instructed in initial balance exercises and issued a written handout today, demonstrating good understanding. Physical Therapy Plan Frequency and Duration Frequency of Treatment 2x/Week Duration of Treatment 8 wks Plan of Care Start Date 01/21/22 Plan of Care End Date 03/23/22 Therapeutic Interventions Therapeutic Interventions Aquatic Therapy,Balance Training,Gait Training,Home Exercise Program,Neuromuscular Re-education,Self-Care/Home Management,Therapeutic Activities,Therapeutic Exercises Modalities Cold Pack/Ice Massage,Hot Packs Next Visit Focus/Plan Next Note Type Treatment Note Next Visit Plan Review HEP, progress with balance and gait training activities, LE and core strengthening as tolerated. Plan of Care Dates Plan of Care Start Date 01/21/22 Plan of Care End Date 03/23/22 Electronically Signed by: Melissa Romero, PT 01/25/22 [id number] Please Sign and Return: I have reviewed this Plan of Care and certify that the skilled therapy services above are required to meet the patient?s needs. Physician Signature Date Printed Name and Credentials Clinical Instructor Signature Printed Name and Credentials
--- NOTE | 2022-01-25 14:26 | PT.OTN ---
Current Diagnoses Unsteadiness on feet (01/25/22) Other abnormalities of gait and mobility (01/25/22) Weakness (01/25/22) Physical Therapy Treatment Note PT-OP-A Visit Information Start: 01/18/22 17:13 Freq: Status: Active Protocol: Document 01/25/22 14:18 [facility] (Rec: 01/25/22 14:26 [facility] [id number]) Out-Patient Physical Therapy Visit Information Visit Information Visit Type Treatment Note Visit Start Time 09:00 Visit Stop Time 09:45 Total Visit Minutes 45 Visit Number 2 Evaluation Information Evaluation Date 01/21/22 Precautions Precautions HTN, history of BPPV and Meniere's, wears hearing aids and glasses with progressive lenses PT-OP-B Current Condition Start: 01/18/22 17:13 Freq: Status: Active Protocol: Document 01/25/22 14:18 [facility] (Rec: 01/25/22 14:26 [facility] [id number]) Current Condition History of Current Condition Onset Date 5 years Current Complaints difficulty with balance History of Current Condition 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 Patient reports balance difficulties, has had multiple almostfalls, no specific situations, concerned won't be able to get up if falls. If goes for a walk carries a cane. Staggering noted by PT comes and goes but isn't uncommon. Denies dizziness at this time because I know what to do to avoid it. No exercises besides going for walks; walks up to 2 miles per day. Lives with , has stairs with railing, bars in shower. Treatment Goals Patient/Caregiver Goals IMprove balance, be more comfortable walking. PT-OP-C Subjective Start: 01/18/22 17:13 Freq: Status: Active Protocol: Document 01/25/22 14:18 [facility] (Rec: 01/25/22 14:26 [facility] [id number]) OP-PT Subjective Patient Comments Patient Comments No new c/o. Compliant to HEP: my balance isn't very good. PT-OP-D Balance Start: 01/18/22 17:13 Freq: Status: Active Protocol: Document 01/21/22 09:02 [facility]AK (Rec: 01/21/22 09:57 [facility] [id number]) OP-PT Balance Assessment Sitting Balance Static Sitting Balance Ability Normal Dynamic Sitting Balance Ability Good Standing Balance Static Standing Balance Ability Normal Standing Balance Comments see gbalance assessments Balance Tests Abreu Balance Test Abreu Balance Test Score 36 Wilcox Fall Scale Copyright Permission PT-OP-G Mobility & Gait Start: 01/18/22 17:13 Freq: Status: Active Protocol: Document 01/21/22 09:02 [facility] (Rec: 01/25/22 14:16 [facility] [id number]) OP Mobility Evaluation Bed Mobility Rolling indep Supine to and from Sit indep Transfers Sit to Stand indep, min to no use of hands OP Gait Assessment Gait Gait Assistance Required: Independent Able to Maintain Weight Bearing Status No During Gait Gait Deviations General Gait Pattern Decreased Stride Length, Decreased Feet Clearance,Wide Based Gait Factors Limiting Gait Function Factors Limiting Gait Function Poor Balance Stair Climbing Evaluation Evaluation Level of Assist On Stairs Independent Devices Stair Climbing Assistive Devices Left Railing,Right Railing Technique/Endurance Stair Climbing Direction Ascend and Descend PT-OP-H Neuro Start: 01/18/22 17:13 Freq: Status: Active Protocol: Document 01/21/22 09:02 [facility] (Rec: 01/25/22 14:16 [facility] [id number]) Sensation Evaluation Gross Sensation Gross Sensation WNL PT-OP-M Strength Start: 01/18/22 17:13 Freq: Status: Active Protocol: Document 01/21/22 09:02 [facility] (Rec: 01/25/22 14:16 [facility] [id number]) Hip Strength Hip Manual Muscle Testing charleen Flexion (L2) 4 Good Extension (S1) 4- Good- Abduction 4- Good- External Rotation 4 Good Internal Rotation 4 Good Knee Strength Knee Manual Muscle Testing charleen Flexion (S2) 5 Normal Extension (L3) 5 Normal Ankle/Foot Strength Ankle and Foot Manual Muscle Testing charleen Dorsiflexion (L4) 4 Good Plantarflexion (S1) 4 Good PT-OP-Q Treatments Start: 01/18/22 17:13 Freq: Status: Active Protocol: Document 01/25/22 14:18 [facility] (Rec: 01/25/22 14:26 [facility] [id number]) Cardio Equipment Recumbent Stepper (Sci-Fit) Duration (Minutes) 5 Resistance 1.5 Seat Position 13 Gait Training Gait Activity unpredictable commands Treatment Focus balance and safety Comments fwd, back, march, fast, slow, turn.... Neuro Re-Education Treatment Balance Activities tandem gait Reps/Duration 10 ft Comments difficulty outside of parallel bars, mod assist for balance dayo walking, toe walking Reps/Duration 20 ft Comments no UE support step-outs Details fwd,bck, side Reps/Duration 5 ea Comments parallel bars; cues for min UE support tiltboard Details balance and wt shift fwd/bck, side Reps/Duration 10 min Comments parallel bars; cues for min UE support foam stand Details WBOS EO and EC Equipment blue square foam Comments parallel bars; cues for min UE support hurdles Details forward and sideways Reps/Duration 2 laps ea Comments parallel bars; cues for min UE support backward walking Reps/Duration 2 laps Comments parallel bars; cues for min UE support marching Reps/Duration 2 laps Comments parallel bars; cues for min UE support Self-Care/Home Management Treatment Education Other Education continue HEP, add tandem gait, heel and toe walking PT-OP-T Assessment and Plan Start: 01/18/22 17:13 Freq: Status: Active Protocol: Document 01/25/22 14:18 [facility] (Rec: 01/25/22 14:26 [facility] [id number]) Physical Therapy Assessment Goals Two Impairment unsteady gait Impairment Dynamic gait index 16/24 Short Term Goal (STG) Improve DGI score to at least 20/24 as measure of improved safety with gait in the home and community STG Duration 02/20/22 Armature Connector Goal (LTG) Improve DGI score to at least 22/24 as measure of improved safety with gait in the home and community. Patient able to resume taking regular walks for exercise regularly, using assistive device as needed for safety. LTG Duration 03/23/22 One Impairment balance dysfunction, high risk for falls Impairment Abreu Balance score 36/56; high risk for falls Short Term Goal (STG) Improve Abreu to at least 46/56 as measure of decrease in fall risk STG Duration 02/20/22 Jail Goal (LTG) Improve Abreu to at least 51/56 as measure of decrease in fall risk and improved mobility in the home and community LTG Duration 03/23/22 Physical Therapy Plan Frequency and Duration Frequency of Treatment 2x/Week Duration of Treatment 8 wks Plan of Care Start Date 01/21/22 Plan of Care End Date 03/23/22 Therapeutic Interventions Therapeutic Interventions Aquatic Therapy,Balance Training,Gait Training,Home Exercise Program,Neuromuscular Re-education,Self-Care/Home Management,Therapeutic Activities,Therapeutic Exercises Modalities Cold Pack/Ice Massage,Hot Packs Next Visit Focus/Plan Next Note Type Treatment Note Next Visit Plan Assess tolerance for last session, progress balance, LE and core strengthening as tolerated.
--- NOTE | 2022-01-28 13:39 | PT.OTN ---
Current Diagnoses Unsteadiness on feet (01/28/22) Other abnormalities of gait and mobility (01/28/22) Weakness (01/28/22) Physical Therapy Treatment Note PT-OP-A Visit Information Start: 01/18/22 17:13 Freq: Status: Active Protocol: Document 01/28/22 09:01 [facility] (Rec: 01/28/22 09:48 [facility] [id number]) Out-Patient Physical Therapy Visit Information Visit Information Visit Type Treatment Note Visit Start Time 09:00 Visit Stop Time 09:45 Total Visit Minutes 45 Visit Number 3 Evaluation Information Evaluation Date 01/21/22 Precautions Precautions HTN, history of BPPV and Meniere's, wears hearing aids and glasses with progressive lenses PT-OP-B Current Condition Start: 01/18/22 17:13 Freq: Status: Active Protocol: Document 01/25/22 14:18 [facility] (Rec: 01/25/22 14:26 [facility] [id number]) Current Condition History of Current Condition Onset Date 5 years Current Complaints difficulty with balance History of Current Condition 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 Patient reports balance difficulties, has had multiple almostfalls, no specific situations, concerned won't be able to get up if falls. If goes for a walk carries a cane. Staggering noted by PT comes and goes but isn't uncommon. Denies dizziness at this time because I know what to do to avoid it. No exercises besides going for walks; walks up to 2 miles per day. Lives with , has stairs with railing, bars in shower. Treatment Goals Patient/Caregiver Goals IMprove balance, be more comfortable walking. PT-OP-C Subjective Start: 01/18/22 17:13 Freq: Status: Active Protocol: Document 01/28/22 09:01 [facility] (Rec: 01/28/22 13:39 [facility] [id number]) OP-PT Subjective Patient Comments Patient Comments States the day after PT his balance seemed better, and states yesterday I had to hold on more for everything. PT-OP-D Balance Start: 01/18/22 17:13 Freq: Status: Active Protocol: Document 01/21/22 09:02 [facility]AK (Rec: 01/21/22 09:57 [facility] [id number]) OP-PT Balance Assessment Sitting Balance Static Sitting Balance Ability Normal Dynamic Sitting Balance Ability Good Standing Balance Static Standing Balance Ability Normal Standing Balance Comments see gbalance assessments Balance Tests Abreu Balance Test Abreu Balance Test Score 36 Wilcox Fall Scale Copyright Permission PT-OP-G Mobility & Gait Start: 01/18/22 17:13 Freq: Status: Active Protocol: Document 01/21/22 09:02 [facility] (Rec: 01/25/22 14:16 [facility] [id number]) OP Mobility Evaluation Bed Mobility Rolling indep Supine to and from Sit indep Transfers Sit to Stand indep, min to no use of hands OP Gait Assessment Gait Gait Assistance Required: Independent Able to Maintain Weight Bearing Status No During Gait Gait Deviations General Gait Pattern Decreased Stride Length, Decreased Feet Clearance,Wide Based Gait Factors Limiting Gait Function Factors Limiting Gait Function Poor Balance Stair Climbing Evaluation Evaluation Level of Assist On Stairs Independent Devices Stair Climbing Assistive Devices Left Railing,Right Railing Technique/Endurance Stair Climbing Direction Ascend and Descend PT-OP-H Neuro Start: 01/18/22 17:13 Freq: Status: Active Protocol: Document 01/21/22 09:02 [facility] (Rec: 01/25/22 14:16 [facility] [id number]) Sensation Evaluation Gross Sensation Gross Sensation WNL PT-OP-M Strength Start: 01/18/22 17:13 Freq: Status: Active Protocol: Document 01/21/22 09:02 [facility] (Rec: 01/25/22 14:16 [facility] [id number]) Hip Strength Hip Manual Muscle Testing charleen Flexion (L2) 4 Good Extension (S1) 4- Good- Abduction 4- Good- External Rotation 4 Good Internal Rotation 4 Good Knee Strength Knee Manual Muscle Testing charleen Flexion (S2) 5 Normal Extension (L3) 5 Normal Ankle/Foot Strength Ankle and Foot Manual Muscle Testing charleen Dorsiflexion (L4) 4 Good Plantarflexion (S1) 4 Good PT-OP-Q Treatments Start: 01/18/22 17:13 Freq: Status: Active Protocol: Document 01/28/22 09:01 [facility] (Rec: 01/28/22 09:48 [facility] [id number]) Cardio Equipment Recumbent Stepper (Sci-Fit) Duration (Minutes) 8 Resistance 1.5 Seat Position 14 Gym Equipment Shuttle Balance chains green Details balance WBOS, NBOS, EO, EC, head turns EO, staggered feet EO Neuro Re-Education Treatment Balance Activities tandem gait Reps/Duration 10 ft x 2 forward and back Comments wall bar, mild UE support dayo walking, toe walking Details added to HEP foam stand Details WBOS EO and EC Equipment blue square foam Comments added balloon vb with CG to min assist for balance hurdles Details forward and sideways Surface firm Equipment 1# ankle weights Reps/Duration 2 laps ea Comments no UE support, min to mod PT support marching Equipment 1# ankle weights Reps/Duration 2 laps Self-Care/Home Management Treatment Education Patient Education Home Exercise Program,Safety Other Education updated HEP PT-OP-T Assessment and Plan Start: 01/18/22 17:13 Freq: Status: Active Protocol: Document 01/28/22 09:01 [facility] (Rec: 01/28/22 13:39 [facility]AK [id number]) Physical Therapy Assessment Impairments Impairments Balance,Gait,Strength Goals Two Impairment unsteady gait Impairment Dynamic gait index 16/24 Short Term Goal (STG) Improve DGI score to at least 20/24 as measure of improved safety with gait in the home and community STG Duration 02/20/22 Insulation Applicator Goal (LTG) Improve DGI score to at least 22/24 as measure of improved safety with gait in the home and community. Patient able to resume taking regular walks for exercise regularly, using assistive device as needed for safety. LTG Duration 03/23/22 One Impairment balance dysfunction, high risk for falls Impairment Abreu Balance score 36/56; high risk for falls Short Term Goal (STG) Improve Abreu to at least 46/56 as measure of decrease in fall risk STG Duration 02/20/22 Insulation Applicator Goal (LTG) Improve Abreu to at least 51/56 as measure of decrease in fall risk and improved mobility in the home and community LTG Duration 03/23/22 Assessment Summary Assessment Good tolerance for progression of ther ex; increased time and resistance on SciFit, added shuttle balance, did balance activities out of parallel bars. Added sit to stand, tandem gait, toe walking, and heel walking to HEP. Physical Therapy Plan Frequency and Duration Frequency of Treatment 2x/Week Duration of Treatment 8 wks Plan of Care Start Date 01/21/22 Plan of Care End Date 03/23/22 Therapeutic Interventions Therapeutic Interventions Aquatic Therapy,Balance Training,Gait Training,Home Exercise Program,Neuromuscular Re-education,Self-Care/Home Management,Therapeutic Activities,Therapeutic Exercises Modalities Cold Pack/Ice Massage,Hot Packs Next Visit Focus/Plan Next Note Type Treatment Note Next Visit Plan Continue progression of gait training, ther ex, balance retraining. Progress to harder setting on shuttle balance, consider sport cord, add step-ups/downs to obstacle course
--- NOTE | 2022-02-01 10:15 | PT.OTN ---
Current Diagnoses Unsteadiness on feet (02/01/22) Other abnormalities of gait and mobility (02/01/22) Weakness (02/01/22) Physical Therapy Treatment Note PT-OP-A Visit Information Start: 01/18/22 17:13 Freq: Status: Active Protocol: Document 02/01/22 09:23 [facility] (Rec: 02/01/22 10:14 [facility] [id number]) Out-Patient Physical Therapy Visit Information Visit Information Visit Type Treatment Note Visit Start Time 09:30 Visit Stop Time 10:10 Total Visit Minutes 40 Visit Number 4 Number of REDEVELOPMENT SPECIALIST Visits 1 Precautions Precautions HTN, history of BPPV and Meniere's, wears hearing aids and glasses with progressive lenses PT-OP-B Current Condition Start: 01/18/22 17:13 Freq: Status: Active Protocol: Document 01/25/22 14:18 [facility] (Rec: 01/25/22 14:26 [facility] [id number]) Current Condition History of Current Condition Onset Date 5 years Current Complaints difficulty with balance History of Current Condition 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 Patient reports balance difficulties, has had multiple almostfalls, no specific situations, concerned won't be able to get up if falls. If goes for a walk carries a cane. Staggering noted by PT comes and goes but isn't uncommon. Denies dizziness at this time because I know what to do to avoid it. No exercises besides going for walks; walks up to 2 miles per day. Lives with , has stairs with railing, bars in shower. Treatment Goals Patient/Caregiver Goals IMprove balance, be more comfortable walking. PT-OP-C Subjective Start: 01/18/22 17:13 Freq: Status: Active Protocol: Document 02/01/22 09:23 [facility] (Rec: 02/01/22 10:14 MA [id number]) OP-PT Subjective Patient Comments Patient Comments Pt states his balance is a little better but still not good. PT-OP-D Balance Start: 01/18/22 17:13 Freq: Status: Active Protocol: Document 01/21/22 09:02 [facility] (Rec: 01/21/22 09:57 [facility] [id number]) OP-PT Balance Assessment Sitting Balance Static Sitting Balance Ability Normal Dynamic Sitting Balance Ability Good Standing Balance Static Standing Balance Ability Normal Standing Balance Comments see gbalance assessments Balance Tests Abreu Balance Test Abreu Balance Test Score 36 Wilcox Fall Scale Copyright Permission PT-OP-G Mobility & Gait Start: 01/18/22 17:13 Freq: Status: Active Protocol: Document 01/21/22 09:02 [facility] (Rec: 01/25/22 14:16 SAK [id number]) OP Mobility Evaluation Bed Mobility Rolling indep Supine to and from Sit indep Transfers Sit to Stand indep, min to no use of hands OP Gait Assessment Gait Gait Assistance Required: Independent Able to Maintain Weight Bearing Status No During Gait Gait Deviations General Gait Pattern Decreased Stride Length, Decreased Feet Clearance,Wide Based Gait Factors Limiting Gait Function Factors Limiting Gait Function Poor Balance Stair Climbing Evaluation Evaluation Level of Assist On Stairs Independent Devices Stair Climbing Assistive Devices Left Railing,Right Railing Technique/Endurance Stair Climbing Direction Ascend and Descend PT-OP-H Neuro Start: 01/18/22 17:13 Freq: Status: Active Protocol: Document 01/21/22 09:02 [facility] (Rec: 01/25/22 14:16 [facility] [id number]) Sensation Evaluation Gross Sensation Gross Sensation WNL PT-OP-M Strength Start: 01/18/22 17:13 Freq: Status: Active Protocol: Document 01/21/22 09:02 [facility] (Rec: 01/25/22 14:16 [facility] [id number]) Hip Strength Hip Manual Muscle Testing charleen Flexion (L2) 4 Good Extension (S1) 4- Good- Abduction 4- Good- External Rotation 4 Good Internal Rotation 4 Good Knee Strength Knee Manual Muscle Testing charleen Flexion (S2) 5 Normal Extension (L3) 5 Normal Ankle/Foot Strength Ankle and Foot Manual Muscle Testing charleen Dorsiflexion (L4) 4 Good Plantarflexion (S1) 4 Good PT-OP-Q Treatments Start: 01/18/22 17:13 Freq: Status: Active Protocol: Document 02/01/22 09:23 MA (Rec: 02/01/22 10:14 MA [id number]) Cardio Equipment Recumbent Stepper (Sci-Fit) Duration (Minutes) 9 Resistance 1.5-2 Seat Position 14 Gym Equipment Shuttle Balance Blue Chains Details WBOS, NBOS, staggered stance Therapeutic Exercises Standing Exercises Sit<>stands Equipment Used std height chair Reps/Minutes x10 Heel Raises Reps/Minutes 2x10 Comments 1st set with rail, 2nd set without Neuro Re-Education Treatment Balance Activities tandem gait Reps/Duration 10 ft x 2 forward and back Comments wall bar, mild UE support foam stand Details WBOS EO and EC Equipment blue square foam hurdles Details forward and sideways Surface firm Equipment 1# ankle weights Reps/Duration 2 laps ea Comments no UE support, min to mod PT support fwd with 6 box and blue foam mixed in for obstacles/balance challenge backward walking Reps/Duration 2 laps Comments parallel bars; cues for taking larger steps vs shuffling back marching Equipment 1# ankle weights Reps/Duration in place today Comments first on solid floor, second on blue foam for balance challenge-pt requires Min A PT-OP-T Assessment and Plan Start: 01/18/22 17:13 Freq: Status: Active Protocol: Document 02/01/22 09:23 MA (Rec: 02/01/22 10:14 MA [id number]) Physical Therapy Assessment Goals Two Impairment unsteady gait Impairment Dynamic gait index 16/24 Short Term Goal (STG) Improve DGI score to at least 20/24 as measure of improved safety with gait in the home and community STG Duration 02/20/22 Sheet Metal Shop Helper Goal (LTG) Improve DGI score to at least 22/24 as measure of improved safety with gait in the home and community. Patient able to resume taking regular walks for exercise regularly, using assistive device as needed for safety. LTG Duration 03/23/22 One Impairment balance dysfunction, high risk for falls Impairment Abreu Balance score 36/56; high risk for falls Short Term Goal (STG) Improve Abreu to at least 46/56 as measure of decrease in fall risk STG Duration 02/20/22 Sheet Metal Shop Helper Goal (LTG) Improve Abreu to at least 51/56 as measure of decrease in fall risk and improved mobility in the home and community LTG Duration 03/23/22 Assessment Summary Assessment Matty does well with progressing all balance exercises. He is challenged by backwards walking and when on obstacle course with hurdles, step ups, and blue foam for added balance challenge. Physical Therapy Plan Frequency and Duration Frequency of Treatment 2x/Week Duration of Treatment 8 wks Plan of Care Start Date 01/21/22 Plan of Care End Date 03/23/22 Therapeutic Interventions Therapeutic Interventions Aquatic Therapy,Balance Training,Gait Training,Home Exercise Program,Neuromuscular Re-education,Self-Care/Home Management,Therapeutic Activities,Therapeutic Exercises Modalities Cold Pack/Ice Massage,Hot Packs Next Visit Focus/Plan Next Note Type Treatment Note Next Visit Plan Continue progression of gait training, ther ex, balance retraining. Consider sport cord and continue with added step-ups/downs to obstacle course
--- NOTE | 2022-02-04 09:45 | PT.OTN ---
Current Diagnoses Unsteadiness on feet (02/04/22) Other abnormalities of gait and mobility (02/04/22) Weakness (02/04/22) Physical Therapy Treatment Note PT-OP-A Visit Information Start: 01/18/22 17:13 Freq: Status: Active Protocol: Document 02/04/22 09:45 SAK (Rec: 02/04/22 10:32 [facility] [id number]) Out-Patient Physical Therapy Visit Information Visit Information Visit Type Treatment Note Visit Start Time 09:45 Visit Stop Time 10:28 Total Visit Minutes 43 Visit Number 5 Number of FITNESS DIRECTOR Visits 0 Precautions Precautions HTN, history of BPPV and Meniere's, wears hearing aids and glasses with progressive lenses PT-OP-B Current Condition Start: 01/18/22 17:13 Freq: Status: Active Protocol: Document 01/25/22 14:18 SAK (Rec: 01/25/22 14:26 SAK [id number]) Current Condition History of Current Condition Onset Date 5 years Current Complaints difficulty with balance History of Current Condition 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 Patient reports balance difficulties, has had multiple almostfalls, no specific situations, concerned won't be able to get up if falls. If goes for a walk carries a cane. Staggering noted by PT comes and goes but isn't uncommon. Denies dizziness at this time because I know what to do to avoid it. No exercises besides going for walks; walks up to 2 miles per day. Lives with , has stairs with railing, bars in shower. Treatment Goals Patient/Caregiver Goals IMprove balance, be more comfortable walking. PT-OP-C Subjective Start: 01/18/22 17:13 Freq: Status: Active Protocol: Document 02/04/22 09:45 SAK (Rec: 02/04/22 10:32 [facility] [id number]) OP-PT Subjective Patient Comments Patient Comments No new c/o, continues to practice HEP, good and bad days. PT-OP-D Balance Start: 01/18/22 17:13 Freq: Status: Active Protocol: Document 01/21/22 09:02 SAK (Rec: 01/21/22 09:57 SAK [id number]) OP-PT Balance Assessment Sitting Balance Static Sitting Balance Ability Normal Dynamic Sitting Balance Ability Good Standing Balance Static Standing Balance Ability Normal Standing Balance Comments see gbalance assessments Balance Tests Abreu Balance Test Abreu Balance Test Score 36 Wilcox Fall Scale Copyright Permission PT-OP-G Mobility & Gait Start: 01/18/22 17:13 Freq: Status: Active Protocol: Document 01/21/22 09:02 [facility] (Rec: 01/25/22 14:16 [facility] [id number]) OP Mobility Evaluation Bed Mobility Rolling indep Supine to and from Sit indep Transfers Sit to Stand indep, min to no use of hands OP Gait Assessment Gait Gait Assistance Required: Independent Able to Maintain Weight Bearing Status No During Gait Gait Deviations General Gait Pattern Decreased Stride Length, Decreased Feet Clearance,Wide Based Gait Factors Limiting Gait Function Factors Limiting Gait Function Poor Balance Stair Climbing Evaluation Evaluation Level of Assist On Stairs Independent Devices Stair Climbing Assistive Devices Left Railing,Right Railing Technique/Endurance Stair Climbing Direction Ascend and Descend PT-OP-H Neuro Start: 01/18/22 17:13 Freq: Status: Active Protocol: Document 01/21/22 09:02 [facility] (Rec: 01/25/22 14:16 [facility] [id number]) Sensation Evaluation Gross Sensation Gross Sensation WNL PT-OP-M Strength Start: 01/18/22 17:13 Freq: Status: Active Protocol: Document 01/21/22 09:02 [facility] (Rec: 01/25/22 14:16 [facility] [id number]) Hip Strength Hip Manual Muscle Testing charleen Flexion (L2) 4 Good Extension (S1) 4- Good- Abduction 4- Good- External Rotation 4 Good Internal Rotation 4 Good Knee Strength Knee Manual Muscle Testing charleen Flexion (S2) 5 Normal Extension (L3) 5 Normal Ankle/Foot Strength Ankle and Foot Manual Muscle Testing charleen Dorsiflexion (L4) 4 Good Plantarflexion (S1) 4 Good PT-OP-Q Treatments Start: 01/18/22 17:13 Freq: Status: Active Protocol: Document 02/04/22 09:45 [facility] (Rec: 02/04/22 10:32 [facility] [id number]) Cardio Equipment Recumbent Stepper (Sci-Fit) Duration (Minutes) 9 Resistance 2 Seat Position 14 Gym Equipment Shuttle Balance chains red Details balance and wt shifts EO fwd/ bck Comments side to side next session Therapeutic Exercises Standing Exercises HC stretch Reps/Minutes 2x Sit<>stands Equipment Used std height chair Reps/Minutes x10 Heel Raises Reps/Minutes 2x10 Comments 1st set with rail, 2nd set without Neuro Re-Education Treatment Balance Activities soccer ball kick Equipment socker ball Reps/Duration 4 min Comments between patient and PT aide; PT CGA to min assist for bal with gait belt foam stand Details WBOS EO and EC Equipment blue square foam Comments balloon volleyball: CGA to min assist, gait belt hurdles Details forward and sideways Surface firm Equipment 1# ankle weights Reps/Duration 2 laps ea Comments no UE support, CG to min assist, gait belt fwd with 6 box and blue foam mixed in for obstacles/balance challenge PT-OP-T Assessment and Plan Start: 01/18/22 17:13 Freq: Status: Active Protocol: Document 02/04/22 09:45 [facility] (Rec: 02/04/22 10:32 [facility] [id number]) Physical Therapy Assessment Goals Two Impairment unsteady gait Impairment Dynamic gait index 16/24 Short Term Goal (STG) Improve DGI score to at least 20/24 as measure of improved safety with gait in the home and community STG Duration 02/20/22 Residential Goal (LTG) Improve DGI score to at least 22/24 as measure of improved safety with gait in the home and community. Patient able to resume taking regular walks for exercise regularly, using assistive device as needed for safety. LTG Duration 03/23/22 One Impairment balance dysfunction, high risk for falls Impairment Abreu Balance score 36/56; high risk for falls Short Term Goal (STG) Improve Abreu to at least 46/56 as measure of decrease in fall risk STG Duration 02/20/22 Residential Goal (LTG) Improve Abreu to at least 51/56 as measure of decrease in fall risk and improved mobility in the home and community LTG Duration 03/23/22 Assessment Summary Assessment Patient reported increased fatigue today with progression of ther ex but tolerated well with a few rest breaks. Increased unpredictable, dynamic balance challenges today with CGA to min assist required with hurdles, balloon vb standing on foam, soccer ball kick. Compliant with HEP . Physical Therapy Plan Frequency and Duration Frequency of Treatment 2x/Week Duration of Treatment 8 wks Plan of Care Start Date 01/21/22 Plan of Care End Date 03/23/22 Therapeutic Interventions Therapeutic Interventions Aquatic Therapy,Balance Training,Gait Training,Home Exercise Program,Neuromuscular Re-education,Self-Care/Home Management,Therapeutic Activities,Therapeutic Exercises Modalities Cold Pack/Ice Massage,Hot Packs Next Visit Focus/Plan Next Note Type Treatment Note Next Visit Plan Trial sport cord for challenged gait, try side to side balance and weight shift on red [place] shuttle balance.
--- NOTE | 2022-02-07 08:12 | PT.OTN ---
Current Diagnoses Unsteadiness on feet (02/04/22) Other abnormalities of gait and mobility (02/04/22) Weakness (02/04/22) Physical Therapy Treatment Note PT-OP-A Visit Information Start: 01/18/22 17:13 Freq: Status: Active Protocol: Document 02/04/22 09:45 SAK (Rec: 02/04/22 10:32 [facility] [id number]) Out-Patient Physical Therapy Visit Information Visit Information Visit Type Treatment Note Visit Start Time 09:45 Visit Stop Time 10:28 Total Visit Minutes 43 Visit Number 5 Number of LIBRARY SCIENCE INSTRUCTOR Visits 0 Precautions Precautions HTN, history of BPPV and Meniere's, wears hearing aids and glasses with progressive lenses PT-OP-B Current Condition Start: 01/18/22 17:13 Freq: Status: Active Protocol: Document 01/25/22 14:18 SAK (Rec: 01/25/22 14:26 SAK [id number]) Current Condition History of Current Condition Onset Date 5 years Current Complaints difficulty with balance History of Current Condition 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 Patient reports balance difficulties, has had multiple almostfalls, no specific situations, concerned won't be able to get up if falls. If goes for a walk carries a cane. Staggering noted by PT comes and goes but isn't uncommon. Denies dizziness at this time because I know what to do to avoid it. No exercises besides going for walks; walks up to 2 miles per day. Lives with , has stairs with railing, bars in shower. Treatment Goals Patient/Caregiver Goals IMprove balance, be more comfortable walking. PT-OP-C Subjective Start: 01/18/22 17:13 Freq: Status: Active Protocol: Document 02/04/22 09:45 SAK (Rec: 02/04/22 10:32 [facility] [id number]) OP-PT Subjective Patient Comments Patient Comments No new c/o, continues to practice HEP, good and bad days. PT-OP-D Balance Start: 01/18/22 17:13 Freq: Status: Active Protocol: Document 01/21/22 09:02 SAK (Rec: 01/21/22 09:57 SAK [id number]) OP-PT Balance Assessment Sitting Balance Static Sitting Balance Ability Normal Dynamic Sitting Balance Ability Good Standing Balance Static Standing Balance Ability Normal Standing Balance Comments see gbalance assessments Balance Tests Abreu Balance Test Abreu Balance Test Score 36 Wilcox Fall Scale Copyright Permission PT-OP-G Mobility & Gait Start: 01/18/22 17:13 Freq: Status: Active Protocol: Document 01/21/22 09:02 [facility] (Rec: 01/25/22 14:16 [facility] [id number]) OP Mobility Evaluation Bed Mobility Rolling indep Supine to and from Sit indep Transfers Sit to Stand indep, min to no use of hands OP Gait Assessment Gait Gait Assistance Required: Independent Able to Maintain Weight Bearing Status No During Gait Gait Deviations General Gait Pattern Decreased Stride Length, Decreased Feet Clearance,Wide Based Gait Factors Limiting Gait Function Factors Limiting Gait Function Poor Balance Stair Climbing Evaluation Evaluation Level of Assist On Stairs Independent Devices Stair Climbing Assistive Devices Left Railing,Right Railing Technique/Endurance Stair Climbing Direction Ascend and Descend PT-OP-H Neuro Start: 01/18/22 17:13 Freq: Status: Active Protocol: Document 01/21/22 09:02 [facility] (Rec: 01/25/22 14:16 [facility] [id number]) Sensation Evaluation Gross Sensation Gross Sensation WNL PT-OP-M Strength Start: 01/18/22 17:13 Freq: Status: Active Protocol: Document 01/21/22 09:02 [facility] (Rec: 01/25/22 14:16 [facility] [id number]) Hip Strength Hip Manual Muscle Testing charleen Flexion (L2) 4 Good Extension (S1) 4- Good- Abduction 4- Good- External Rotation 4 Good Internal Rotation 4 Good Knee Strength Knee Manual Muscle Testing charleen Flexion (S2) 5 Normal Extension (L3) 5 Normal Ankle/Foot Strength Ankle and Foot Manual Muscle Testing charleen Dorsiflexion (L4) 4 Good Plantarflexion (S1) 4 Good PT-OP-Q Treatments Start: 01/18/22 17:13 Freq: Status: Active Protocol: Document 02/04/22 09:45 [facility] (Rec: 02/04/22 10:32 [facility] [id number]) Cardio Equipment Recumbent Stepper (Sci-Fit) Duration (Minutes) 9 Resistance 2 Seat Position 14 Gym Equipment Shuttle Balance chains red Details balance and wt shifts EO fwd/ bck Comments side to side next session Therapeutic Exercises Standing Exercises HC stretch Reps/Minutes 2x Sit<>stands Equipment Used std height chair Reps/Minutes x10 Heel Raises Reps/Minutes 2x10 Comments 1st set with rail, 2nd set without Neuro Re-Education Treatment Balance Activities soccer ball kick Equipment socker ball Reps/Duration 4 min Comments between patient and PT aide; PT CGA to min assist for bal with gait belt foam stand Details WBOS EO and EC Equipment blue square foam Comments balloon volleyball: CGA to min assist, gait belt hurdles Details forward and sideways Surface firm Equipment 1# ankle weights Reps/Duration 2 laps ea Comments no UE support, CG to min assist, gait belt fwd with 6 box and blue foam mixed in for obstacles/balance challenge PT-OP-T Assessment and Plan Start: 01/18/22 17:13 Freq: Status: Active Protocol: Document 02/04/22 09:45 [facility] (Rec: 02/04/22 10:32 [facility] [id number]) Physical Therapy Assessment Goals Two Impairment unsteady gait Impairment Dynamic gait index 16/24 Short Term Goal (STG) Improve DGI score to at least 20/24 as measure of improved safety with gait in the home and community STG Duration 02/20/22 Usp Goal (LTG) Improve DGI score to at least 22/24 as measure of improved safety with gait in the home and community. Patient able to resume taking regular walks for exercise regularly, using assistive device as needed for safety. LTG Duration 03/23/22 One Impairment balance dysfunction, high risk for falls Impairment Abreu Balance score 36/56; high risk for falls Short Term Goal (STG) Improve Abreu to at least 46/56 as measure of decrease in fall risk STG Duration 02/20/22 Usp Goal (LTG) Improve Abreu to at least 51/56 as measure of decrease in fall risk and improved mobility in the home and community LTG Duration 03/23/22 Assessment Summary Assessment Patient reported increased fatigue today with progression of ther ex but tolerated well with a few rest breaks. Increased unpredictable, dynamic balance challenges today with CGA to min assist required with hurdles, balloon vb standing on foam, soccer ball kick. Compliant with HEP . Physical Therapy Plan Frequency and Duration Frequency of Treatment 2x/Week Duration of Treatment 8 wks Plan of Care Start Date 01/21/22 Plan of Care End Date 03/23/22 Therapeutic Interventions Therapeutic Interventions Aquatic Therapy,Balance Training,Gait Training,Home Exercise Program,Neuromuscular Re-education,Self-Care/Home Management,Therapeutic Activities,Therapeutic Exercises Modalities Cold Pack/Ice Massage,Hot Packs Next Visit Focus/Plan Next Note Type Treatment Note Next Visit Plan Trial sport cord for challenged gait, try side to side balance and weight shift on red [employer] shuttle balance.
--- NOTE | 2022-02-08 10:19 | PT.OTN ---
Current Diagnoses Unsteadiness on feet (02/08/22) Other abnormalities of gait and mobility (02/08/22) Weakness (02/08/22) Physical Therapy Treatment Note PT-OP-A Visit Information Start: 01/18/22 17:13 Freq: Status: Active Protocol: Document 02/08/22 09:27 MA (Rec: 02/08/22 10:19 MA [id number]) Out-Patient Physical Therapy Visit Information Visit Information Visit Type Treatment Note Visit Start Time 09:30 Visit Stop Time 10:10 Total Visit Minutes 40 Visit Number 6 Number of X RAY TECH Visits 1 Precautions Precautions HTN, history of BPPV and Meniere's, wears hearing aids and glasses with progressive lenses PT-OP-B Current Condition Start: 01/18/22 17:13 Freq: Status: Active Protocol: Document 01/25/22 14:18 SAK (Rec: 01/25/22 14:26 SAK [id number]) Current Condition History of Current Condition Onset Date 5 years Current Complaints difficulty with balance History of Current Condition 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 Patient reports balance difficulties, has had multiple almostfalls, no specific situations, concerned won't be able to get up if falls. If goes for a walk carries a cane. Staggering noted by PT comes and goes but isn't uncommon. Denies dizziness at this time because I know what to do to avoid it. No exercises besides going for walks; walks up to 2 miles per day. Lives with , has stairs with railing, bars in shower. Treatment Goals Patient/Caregiver Goals IMprove balance, be more comfortable walking. PT-OP-C Subjective Start: 01/18/22 17:13 Freq: Status: Active Protocol: Document 02/08/22 09:27 MA (Rec: 02/08/22 10:19 MA [id number]) OP-PT Subjective Patient Comments Patient Comments Pt requests working on getting up from floor without outside support. PT-OP-D Balance Start: 01/18/22 17:13 Freq: Status: Active Protocol: Document 01/21/22 09:02 SAK (Rec: 01/21/22 09:57 SAK [id number]) OP-PT Balance Assessment Sitting Balance Static Sitting Balance Ability Normal Dynamic Sitting Balance Ability Good Standing Balance Static Standing Balance Ability Normal Standing Balance Comments see gbalance assessments Balance Tests Abreu Balance Test Abreu Balance Test Score 36 Wilcox Fall Scale Copyright Permission PT-OP-G Mobility & Gait Start: 01/18/22 17:13 Freq: Status: Active Protocol: Document 01/21/22 09:02 [facility] (Rec: 01/25/22 14:16 [facility] [id number]) OP Mobility Evaluation Bed Mobility Rolling indep Supine to and from Sit indep Transfers Sit to Stand indep, min to no use of hands OP Gait Assessment Gait Gait Assistance Required: Independent Able to Maintain Weight Bearing Status No During Gait Gait Deviations General Gait Pattern Decreased Stride Length, Decreased Feet Clearance,Wide Based Gait Factors Limiting Gait Function Factors Limiting Gait Function Poor Balance Stair Climbing Evaluation Evaluation Level of Assist On Stairs Independent Devices Stair Climbing Assistive Devices Left Railing,Right Railing Technique/Endurance Stair Climbing Direction Ascend and Descend PT-OP-H Neuro Start: 01/18/22 17:13 Freq: Status: Active Protocol: Document 01/21/22 09:02 [facility] (Rec: 01/25/22 14:16 [facility] [id number]) Sensation Evaluation Gross Sensation Gross Sensation WNL PT-OP-M Strength Start: 01/18/22 17:13 Freq: Status: Active Protocol: Document 01/21/22 09:02 [facility] (Rec: 01/25/22 14:16 [facility] [id number]) Hip Strength Hip Manual Muscle Testing charleen Flexion (L2) 4 Good Extension (S1) 4- Good- Abduction 4- Good- External Rotation 4 Good Internal Rotation 4 Good Knee Strength Knee Manual Muscle Testing charleen Flexion (S2) 5 Normal Extension (L3) 5 Normal Ankle/Foot Strength Ankle and Foot Manual Muscle Testing charleen Dorsiflexion (L4) 4 Good Plantarflexion (S1) 4 Good PT-OP-Q Treatments Start: 01/18/22 17:13 Freq: Status: Active Protocol: Document 02/08/22 09:27 MA (Rec: 02/08/22 10:19 MA [id number]) Cardio Equipment Recumbent Stepper (Sci-Fit) Duration (Minutes) 10 Resistance 2 Seat Position 14 Gym Equipment Shuttle Balance chains red Details balance and weight shifts laterally with EO Comments pt unable to do without holding on with single finger on each hand Sport Cord Yellow Exercise Details fwd, lateral, and backwards stepping Cord/Resistance yellow medicord Reps/Duration 5x ea direction Comments pt requiring occassional Min A for balance especially when walking backwards Therapeutic Exercises Standing Exercises Sit<>stands Equipment Used std height chair Reps/Minutes x10 Comments 5x squats at ballet bar after Therapeutic Activity Therapeutic Activity Floor transfers Comments 3x cues for pushing through RLE to stand up- pt requires mod A due to leaning, decreased strength, and LOB Neuro Re-Education Treatment Balance Activities tandem gait Reps/Duration 15 ft x 2 Comments occassional min A for support PT-OP-T Assessment and Plan Start: 01/18/22 17:13 Freq: Status: Active Protocol: Document 02/08/22 09:27 MA (Rec: 02/08/22 10:19 MA [id number]) Physical Therapy Assessment Goals Two Impairment unsteady gait Impairment Dynamic gait index 16 Short Term Goal (STG) Improve DGI score to at least 20/24 as measure of improved safety with gait in the home and community STG Duration 02/20/22 Usp Goal (LTG) Improve DGI score to at least 22/24 as measure of improved safety with gait in the home and community. Patient able to resume taking regular walks for exercise regularly, using assistive device as needed for safety. LTG Duration 03/23/22 One Impairment balance dysfunction, high risk for falls Impairment Abreu Balance score 36/56; high risk for falls Short Term Goal (STG) Improve Abreu to at least 46/56 as measure of decrease in fall risk STG Duration 02/20/22 Cash Sales Audit Clerk Goal (LTG) Improve Abreu to at least 51/56 as measure of decrease in fall risk and improved mobility in the home and community LTG Duration 03/23/22 Assessment Summary Assessment Pt is able to get down to floor during floor transfers CGA, but requires Mod A for support when standing up or loses balance laterally. He does well with resisted walking using cords today when stepping fwd and laterally but requires increased support when walking backwards. Matty is unable to balance without UE support when standing laterally and practicing lateral weight shifts on shuttle balance. He feels his balance is off today and states my knees just feel wobbly today. Pt would benefit from continued therapy to work on floor transfers, increasing LE strength, and improving balance to decrease fall risk at home. Physical Therapy Plan Frequency and Duration Frequency of Treatment 2x/Week Duration of Treatment 8 wks Plan of Care Start Date 01/21/22 Plan of Care End Date 03/23/22 Therapeutic Interventions Therapeutic Interventions Aquatic Therapy,Balance Training,Gait Training,Home Exercise Program,Neuromuscular Re-education,Self-Care/Home Management,Therapeutic Activities,Therapeutic Exercises Modalities Cold Pack/Ice Massage,Hot Packs Next Visit Focus/Plan Next Note Type Treatment Note Next Visit Plan Continue sport cord for challenged gait, try mini lunges holding bar for improving LE strength and balance for floor transfers
--- NOTE | 2022-02-15 11:08 | PT.OTN ---
Current Diagnoses Unsteadiness on feet (02/15/22) Other abnormalities of gait and mobility (02/15/22) Weakness (02/15/22) Physical Therapy Treatment Note PT-OP-A Visit Information Start: 01/18/22 17:13 Freq: Status: Active Protocol: Document 02/15/22 10:19 MA (Rec: 02/15/22 11:02 MA [id number]) Out-Patient Physical Therapy Visit Information Visit Information Visit Type Treatment Note Visit Start Time 10:15 Visit Stop Time 11:00 Total Visit Minutes 45 Visit Number 7 Number of CREDIT DIRECTOR Visits 2 Precautions Precautions HTN, history of BPPV and Meniere's, wears hearing aids and glasses with progressive lenses PT-OP-B Current Condition Start: 01/18/22 17:13 Freq: Status: Active Protocol: Document 01/25/22 14:18 SAK (Rec: 01/25/22 14:26 SAK [id number]) Current Condition History of Current Condition Onset Date 5 years Current Complaints difficulty with balance History of Current Condition 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 Patient reports balance difficulties, has had multiple almostfalls, no specific situations, concerned won't be able to get up if falls. If goes for a walk carries a cane. Staggering noted by PT comes and goes but isn't uncommon. Denies dizziness at this time because I know what to do to avoid it. No exercises besides going for walks; walks up to 2 miles per day. Lives with , has stairs with railing, bars in shower. Treatment Goals Patient/Caregiver Goals IMprove balance, be more comfortable walking. PT-OP-C Subjective Start: 01/18/22 17:13 Freq: Status: Active Protocol: Document 02/15/22 10:19 MA (Rec: 02/15/22 11:02 MA [id number]) OP-PT Subjective Patient Comments Patient Comments Pt states, I did a foolish thing this weekend and worked on my garden. I should have had someone else come do it because my back is sore. PT-OP-D Balance Start: 01/18/22 17:13 Freq: Status: Active Protocol: Document 02/15/22 10:19 MA (Rec: 02/15/22 11:08 MA [id number]) Balance Tests Other Other Balance Tests Performed DGI- score PT-OP-G Mobility & Gait Start: 01/18/22 17:13 Freq: Status: Active Protocol: Document 01/21/22 09:02 [facility] (Rec: 01/25/22 14:16 SAK [id number]) OP Mobility Evaluation Bed Mobility Rolling indep Supine to and from Sit indep Transfers Sit to Stand indep, min to no use of hands OP Gait Assessment Gait Gait Assistance Required: Independent Able to Maintain Weight Bearing Status No During Gait Gait Deviations General Gait Pattern Decreased Stride Length, Decreased Feet Clearance,Wide Based Gait Factors Limiting Gait Function Factors Limiting Gait Function Poor Balance Stair Climbing Evaluation Evaluation Level of Assist On Stairs Independent Devices Stair Climbing Assistive Devices Left Railing,Right Railing Technique/Endurance Stair Climbing Direction Ascend and Descend PT-OP-H Neuro Start: 01/18/22 17:13 Freq: Status: Active Protocol: Document 01/21/22 09:02 [facility] (Rec: 01/25/22 14:16 [facility] [id number]) Sensation Evaluation Gross Sensation Gross Sensation WNL PT-OP-M Strength Start: 01/18/22 17:13 Freq: Status: Active Protocol: Document 01/21/22 09:02 [facility] (Rec: 01/25/22 14:16 [facility] [id number]) Hip Strength Hip Manual Muscle Testing charleen Flexion (L2) 4 Good Extension (S1) 4- Good- Abduction 4- Good- External Rotation 4 Good Internal Rotation 4 Good Knee Strength Knee Manual Muscle Testing charleen Flexion (S2) 5 Normal Extension (L3) 5 Normal Ankle/Foot Strength Ankle and Foot Manual Muscle Testing charleen Dorsiflexion (L4) 4 Good Plantarflexion (S1) 4 Good PT-OP-Q Treatments Start: 01/18/22 17:13 Freq: Status: Active Protocol: Document 02/15/22 10:19 MA (Rec: 02/15/22 11:02 MA [id number]) Cardio Equipment Recumbent Stepper (Sci-Fit) Duration (Minutes) 10 Resistance 2 Seat Position 14 Gym Equipment Sport Cord Yellow Exercise Details fwd, lateral, and backwards stepping Cord/Resistance yellow medicord Reps/Duration 5x ea direction Comments pt requiring occassional Min A for balance Therapeutic Exercises Standing Exercises Mini Lunge Side bilateral Equipment Used rail prn Reps/Minutes x10 ea Comments occ Min A for balance Sit<>stands Equipment Used std height chair Reps/Minutes x10 Neuro Re-Education Treatment Balance Activities hurdles Details forward and sideways Surface firm Equipment 1# ankle weights Reps/Duration 2 laps ea Comments no UE support, CG to min assist, gait belt PT-OP-T Assessment and Plan Start: 01/18/22 17:13 Freq: Status: Active Protocol: Document 02/15/22 10:19 MA (Rec: 02/15/22 11:02 MA [id number]) Physical Therapy Assessment Goals Two Impairment unsteady gait Impairment Dynamic gait index Short Term Goal (STG) Improve DGI score to at least 20/24 as measure of improved safety with gait in the home and community 02/15/22- DGI score STG Duration 02/20/22 Half-Way Goal (LTG) Improve DGI score to at least 22/24 as measure of improved safety with gait in the home and community. Patient able to resume taking regular walks for exercise regularly, using assistive device as needed for safety. LTG Duration 03/23/22 One Impairment balance dysfunction, high risk for falls Impairment Abreu Balance score 36/56; high risk for falls Short Term Goal (STG) Improve Abreu to at least 46/56 as measure of decrease in fall risk STG Duration 02/20/22 Half-Way Goal (LTG) Improve Abreu to at least 51/56 as measure of decrease in fall risk and improved mobility in the home and community LTG Duration 03/23/22 Assessment Summary Assessment Pt feels he only wants to complete final two more PT sessions. Discussed with pt how he would continue to benefit from therapy for improving his balance and LE strength for improved floor transfers, but pt feels he has the tools he needs to continue working at home. Pt scores 19/24 on DGI this session. He has improved balance during resisted gait with sport cord and is better able to walk backwards this session with decreased LOB and increased step length with cues. Physical Therapy Plan Frequency and Duration Frequency of Treatment 2x/Week Duration of Treatment 8 wks Plan of Care Start Date 01/21/22 Plan of Care End Date 03/23/22 Therapeutic Interventions Therapeutic Interventions Aquatic Therapy,Balance Training,Gait Training,Home Exercise Program,Neuromuscular Re-education,Self-Care/Home Management,Therapeutic Activities,Therapeutic Exercises Modalities Cold Pack/Ice Massage,Hot Packs Next Visit Focus/Plan Next Note Type Treatment Note Next Visit Plan Add any additional HEP appropriate as pt will d/c after next session. Continue sport cord for challenged gait, try mini lunges holding bar for improving LE strength and balance for floor transfers
--- NOTE | 2022-02-18 10:02 | PT.OTN ---
Current Diagnoses Unsteadiness on feet (02/18/22) Other abnormalities of gait and mobility (02/18/22) Weakness (02/18/22) Physical Therapy Treatment Note PT-OP-A Visit Information Start: 01/18/22 17:13 Freq: Status: Active Protocol: Document 02/18/22 09:06 [facility] (Rec: 02/18/22 09:46 [facility] [id number]) Out-Patient Physical Therapy Visit Information Visit Information Visit Type Treatment Note Visit Start Time 09:01 Visit Stop Time 09:45 Total Visit Minutes 44 Visit Number 9 Number of BRANCH SERVICE LEADER Visits 0 Precautions Precautions HTN, history of BPPV and Meniere's, wears hearing aids and glasses with progressive lenses PT-OP-B Current Condition Start: 01/18/22 17:13 Freq: Status: Active Protocol: Document 01/25/22 14:18 [facility] (Rec: 01/25/22 14:26 [facility] [id number]) Current Condition History of Current Condition Onset Date 5 years Current Complaints difficulty with balance History of Current Condition 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 Patient reports balance difficulties, has had multiple almostfalls, no specific situations, concerned won't be able to get up if falls. If goes for a walk carries a cane. Staggering noted by PT comes and goes but isn't uncommon. Denies dizziness at this time because I know what to do to avoid it. No exercises besides going for walks; walks up to 2 miles per day. Lives with , has stairs with railing, bars in shower. Treatment Goals Patient/Caregiver Goals IMprove balance, be more comfortable walking. PT-OP-C Subjective Start: 01/18/22 17:13 Freq: Status: Active Protocol: Document 02/18/22 09:06 [facility] (Rec: 02/18/22 09:46 [facility] [id number]) OP-PT Subjective Patient Comments Patient Comments Feel like I'm more steady, feel like I react quicker if I do get unsteady. Can get up from chair now without using my hands. Agreeable to 1 further PT appointment then follow-up 1 month after that to keep him on track. PT-OP-D Balance Start: 01/18/22 17:13 Freq: Status: Active Protocol: Document 02/15/22 10:19 MA (Rec: 02/15/22 11:08 MA [id number]) Balance Tests Other Other Balance Tests Performed DGI- score PT-OP-G Mobility & Gait Start: 01/18/22 17:13 Freq: Status: Active Protocol: Document 01/21/22 09:02 [facility] (Rec: 01/25/22 14:16 SAK [id number]) OP Mobility Evaluation Bed Mobility Rolling indep Supine to and from Sit indep Transfers Sit to Stand indep, min to no use of hands OP Gait Assessment Gait Gait Assistance Required: Independent Able to Maintain Weight Bearing Status No During Gait Gait Deviations General Gait Pattern Decreased Stride Length, Decreased Feet Clearance,Wide Based Gait Factors Limiting Gait Function Factors Limiting Gait Function Poor Balance Stair Climbing Evaluation Evaluation Level of Assist On Stairs Independent Devices Stair Climbing Assistive Devices Left Railing,Right Railing Technique/Endurance Stair Climbing Direction Ascend and Descend PT-OP-H Neuro Start: 01/18/22 17:13 Freq: Status: Active Protocol: Document 01/21/22 09:02 [facility] (Rec: 01/25/22 14:16 [facility] [id number]) Sensation Evaluation Gross Sensation Gross Sensation WNL PT-OP-M Strength Start: 01/18/22 17:13 Freq: Status: Active Protocol: Document 01/21/22 09:02 [facility] (Rec: 01/25/22 14:16 [facility] [id number]) Hip Strength Hip Manual Muscle Testing charleen Flexion (L2) 4 Good Extension (S1) 4- Good- Abduction 4- Good- External Rotation 4 Good Internal Rotation 4 Good Knee Strength Knee Manual Muscle Testing charleen Flexion (S2) 5 Normal Extension (L3) 5 Normal Ankle/Foot Strength Ankle and Foot Manual Muscle Testing charleen Dorsiflexion (L4) 4 Good Plantarflexion (S1) 4 Good PT-OP-Q Treatments Start: 01/18/22 17:13 Freq: Status: Active Protocol: Document 02/18/22 09:06 [facility] (Rec: 02/18/22 09:46 SAK [id number]) Cardio Equipment Recumbent Stepper (Sci-Fit) Duration (Minutes) 10 Resistance 2.t Seat Position 14 Gym Equipment Shuttle Balance chains red Details balance and weight shifts fwd/ bck, laterally with EO Sport Cord Yellow Exercise Details fwd, lateral, and backwards stepping Cord/Resistance green cord Reps/Duration 5x ea direction Comments pt requiring occassional Min A for balance Therapeutic Exercises Standing Exercises march Resistance 2# ankle weights Reps/Minutes 2 min Comments parallel bars split squats Reps/Minutes 10x Mini Lunge Side bilateral Equipment Used rail prn Reps/Minutes x10 ea Comments occ Min A for balance Sit<>stands Equipment Used std height chair Reps/Minutes x10 Neuro Re-Education Treatment Balance Activities BOSU lunge Equipment BOSU blue side up Reps/Duration 10x ea obstacle course Equipment 2lbs on ankles Reps/Duration 5 min Comments blue, green, and mac foam, 6 box, parallel bars hurdles Details forward and sideways Surface firm Equipment 2# ankle weights Reps/Duration 2 laps ea Comments no UE support, CG to min assist, gait belt marching Equipment 2# ankle weights Reps/Duration in place today Comments first on solid floor, second on blue foam for balance challenge-pt requires Min A PT-OP-T Assessment and Plan Start: 01/18/22 17:13 Freq: Status: Active Protocol: Document 02/18/22 09:06 [facility] (Rec: 02/18/22 09:46 [facility] [id number]) Physical Therapy Assessment Goals Two Impairment unsteady gait Impairment Dynamic gait index 16/24 Short Term Goal (STG) Improve DGI score to at least 20/24 as measure of improved safety with gait in the home and community 02/15/22- DGI score 19/24 STG Duration 02/20/22 Penitentiary Goal (LTG) Improve DGI score to at least 22/24 as measure of improved safety with gait in the home and community. Patient able to resume taking regular walks for exercise regularly, using assistive device as needed for safety. LTG Duration 03/23/22 One Impairment balance dysfunction, high risk for falls Impairment Abreu Balance score 36/56; high risk for falls Short Term Goal (STG) Improve Abreu to at least 46/56 as measure of decrease in fall risk STG Duration 02/20/22 Operational Assistant Goal (LTG) Improve Abreu to at least 51/56 as measure of decrease in fall risk and improved mobility in the home and community LTG Duration 03/23/22 Assessment Summary Assessment Improving balance reactions, improved confidence with gait, good compliance to HEP. Discussed one further PT appointment next week, then return in 3-4 weeks for follow -up to assure compliance and continued progress and update HEP as indicated. Physical Therapy Plan Frequency and Duration Frequency of Treatment 2x/Week Duration of Treatment 8 wks Plan of Care Start Date 01/21/22 Plan of Care End Date 03/23/22 Therapeutic Interventions Therapeutic Interventions Aquatic Therapy,Balance Training,Gait Training,Home Exercise Program,Neuromuscular Re-education,Self-Care/Home Management,Therapeutic Activities,Therapeutic Exercises Modalities Cold Pack/Ice Massage,Hot Packs Next Visit Focus/Plan Next Note Type Treatment Note Next Visit Plan Continue progressive ther ex next session for balance and gait, issue any further written instructions as needed , then see patient in 3-4 weeks for follow up.
--- NOTE | 2022-02-25 10:15 | PT.OTN ---
Current Diagnoses Unsteadiness on feet (02/25/22) Other abnormalities of gait and mobility (02/25/22) Weakness (02/25/22) Physical Therapy Treatment Note PT-OP-A Visit Information Start: 01/18/22 17:13 Freq: Status: Active Protocol: Document 02/25/22 09:26 MA (Rec: 02/25/22 10:15 MA [id number]) Out-Patient Physical Therapy Visit Information Visit Information Visit Type Treatment Note Visit Start Time 09:28 Visit Stop Time 10:08 Total Visit Minutes 40 Visit Number 10 Number of STAFFING ACCOUNT MANAGER Visits 1 Precautions Precautions HTN, history of BPPV and Meniere's, wears hearing aids and glasses with progressive lenses PT-OP-B Current Condition Start: 01/18/22 17:13 Freq: Status: Active Protocol: Document 01/25/22 14:18 SAK (Rec: 01/25/22 14:26 SAK [id number]) Current Condition History of Current Condition Onset Date 5 years Current Complaints difficulty with balance History of Current Condition 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 Patient reports balance difficulties, has had multiple almostfalls, no specific situations, concerned won't be able to get up if falls. If goes for a walk carries a cane. Staggering noted by PT comes and goes but isn't uncommon. Denies dizziness at this time because I know what to do to avoid it. No exercises besides going for walks; walks up to 2 miles per day. Lives with , has stairs with railing, bars in shower. Treatment Goals Patient/Caregiver Goals IMprove balance, be more comfortable walking. PT-OP-C Subjective Start: 01/18/22 17:13 Freq: Status: Active Protocol: Document 02/25/22 09:26 MA (Rec: 02/25/22 10:15 MA [id number]) OP-PT Subjective Patient Comments Patient Comments I feel like my balance has improved but I think there is some parts of my balance that can never be fixed. PT-OP-D Balance Start: 01/18/22 17:13 Freq: Status: Active Protocol: Document 02/15/22 10:19 MA (Rec: 02/15/22 11:08 MA [id number]) Balance Tests Other Other Balance Tests Performed DGI- score PT-OP-G Mobility & Gait Start: 01/18/22 17:13 Freq: Status: Active Protocol: Document 01/21/22 09:02 [facility] (Rec: 01/25/22 14:16 [facility] [id number]) OP Mobility Evaluation Bed Mobility Rolling indep Supine to and from Sit indep Transfers Sit to Stand indep, min to no use of hands OP Gait Assessment Gait Gait Assistance Required: Independent Able to Maintain Weight Bearing Status No During Gait Gait Deviations General Gait Pattern Decreased Stride Length, Decreased Feet Clearance,Wide Based Gait Factors Limiting Gait Function Factors Limiting Gait Function Poor Balance Stair Climbing Evaluation Evaluation Level of Assist On Stairs Independent Devices Stair Climbing Assistive Devices Left Railing,Right Railing Technique/Endurance Stair Climbing Direction Ascend and Descend PT-OP-H Neuro Start: 01/18/22 17:13 Freq: Status: Active Protocol: Document 01/21/22 09:02 [facility] (Rec: 01/25/22 14:16 [facility] [id number]) Sensation Evaluation Gross Sensation Gross Sensation WNL PT-OP-M Strength Start: 01/18/22 17:13 Freq: Status: Active Protocol: Document 01/21/22 09:02 [facility] (Rec: 01/25/22 14:16 [facility] [id number]) Hip Strength Hip Manual Muscle Testing charleen Flexion (L2) 4 Good Extension (S1) 4- Good- Abduction 4- Good- External Rotation 4 Good Internal Rotation 4 Good Knee Strength Knee Manual Muscle Testing charleen Flexion (S2) 5 Normal Extension (L3) 5 Normal Ankle/Foot Strength Ankle and Foot Manual Muscle Testing charleen Dorsiflexion (L4) 4 Good Plantarflexion (S1) 4 Good PT-OP-Q Treatments Start: 01/18/22 17:13 Freq: Status: Active Protocol: Document 02/25/22 09:26 MA (Rec: 02/25/22 10:15 MA [id number]) Cardio Equipment Recumbent Stepper (Sci-Fit) Duration (Minutes) 8 Resistance 2.t Seat Position 14 Gym Equipment Shuttle Balance Blue Chains Comments balloon toss- WBOS Therapeutic Exercises Standing Exercises Mini Lunge Side bilateral Equipment Used charleen rails Reps/Minutes x10 ea Sit<>stands Equipment Used std height chair Reps/Minutes x10 Comments Min A for last two stands Heel Raises Reps/Minutes 2x10 Gait Training Gait Activity Uneven surfaces Description outdoor walking Device Used none Level of Assistance SBA-CGA Surface uneven Distance/Duration 5' Comments grass, gravel, curbs, stairs with single rail unpredictable commands Treatment Focus balance and safety Comments fwd, back, december, fast, slow, head turns, 180 degree turns.. .. Neuro Re-Education Treatment Balance Activities obstacle course Comments blue foam, lui foam, 2 step, 4 step, 6 step stepping over and onto various objects with even and uneven ground between tandem gait Equipment rail prn Reps/Duration 15 ft x 2 backward walking Reps/Duration 2 laps Comments pt has improved step length and no longer shuffles feet when stepping backwards PT-OP-T Assessment and Plan Start: 01/18/22 17:13 Freq: Status: Active Protocol: Document 02/25/22 09:26 MA (Rec: 02/25/22 10:15 MA [id number]) Physical Therapy Assessment Goals Two Impairment unsteady gait Impairment Dynamic gait index Short Term Goal (STG) Improve DGI score to at least 20/24 as measure of improved safety with gait in the home and community 02/15/22- DGI score 24 STG Duration 02/20/22 Extraction Supervisor Goal (LTG) Improve DGI score to at least 22/24 as measure of improved safety with gait in the home and community. Patient able to resume taking regular walks for exercise regularly, using assistive device as needed for safety. LTG Duration 03/23/22 One Impairment balance dysfunction, high risk for falls Impairment Abreu Balance score 36/56; high risk for falls Short Term Goal (STG) Improve Abreu to at least 46/56 as measure of decrease in fall risk STG Duration 02/20/22 [facility] Goal (LTG) Improve Abreu to at least 51/56 as measure of decrease in fall risk and improved mobility in the home and community LTG Duration 03/23/22 Assessment Summary Assessment Pt has difficulty still when stepping onto uneven surfaces, most notably when stepping onto lui cushion today. He was able to walk on gravel and step onto/over curbs SBA but required occassional CGA- Min A on grass. He has improved with gait with commands such as quick stops, 180 degree turns, and head nods as evidence by requiring SBA vs CGA-Min A duirng first few sessions. Pt is compliant with his HEP and will continue at home before returning in 4 weeks for f/u appointment to assess progress. Physical Therapy Plan Frequency and Duration Frequency of Treatment 2x/Week Duration of Treatment 8 wks Plan of Care Start Date 01/21/22 Plan of Care End Date 03/23/22 Therapeutic Interventions Therapeutic Interventions Aquatic Therapy,Balance Training,Gait Training,Home Exercise Program,Neuromuscular Re-education,Self-Care/Home Management,Therapeutic Activities,Therapeutic Exercises Modalities Cold Pack/Ice Massage,Hot Packs Next Visit Focus/Plan Next Note Type Treatment Note Next Visit Plan Assess progress to HEP and balance at home. Dispense any additional HEP for balance/ strength.
--- NOTE | 2022-03-30 16:00 | PT.OPDS ---
Current Diagnoses Unsteadiness on feet (03/30/22) Other abnormalities of gait and mobility (03/30/22) Weakness (03/30/22) Visit Care Team Role Provider Type Arslan Jacobs MD Attending Provider Non-Staff Family Provider Primary Care Provider Referring Provider Specialty: Internal Medicine Address: [address] [place] [address], [phone] Email: Visit Number Visit Number 11 Discharge Summary PT-OP-B Current Condition Start: 01/18/22 17:13 Freq: Status: Active Protocol: Document 01/25/22 14:18 SAK (Rec: 01/25/22 14:26 SAK [id number]) Current Condition History of Current Condition Onset Date 5 years Current Complaints difficulty with balance History of Current Condition 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 Patient reports balance difficulties, has had multiple almostfalls, no specific situations, concerned won't be able to get up if falls. If goes for a walk carries a cane. Staggering noted by PT comes and goes but isn't uncommon. Denies dizziness at this time because I know what to do to avoid it. No exercises besides going for walks; walks up to 2 miles per day. Lives with , has stairs with railing, bars in shower. Treatment Goals Patient/Caregiver Goals IMprove balance, be more comfortable walking. PT-OP-C Subjective Start: 01/18/22 17:13 Freq: Status: Active Protocol: Document 02/25/22 09:26 MA (Rec: 02/25/22 10:15 MA [id number]) OP-PT Subjective Patient Comments Patient Comments I feel like my balance has improved but I think there is some parts of my balance that can never be fixed. PT-OP-D Balance Start: 01/18/22 17:13 Freq: Status: Active Protocol: Document 02/15/22 10:19 MA (Rec: 02/15/22 11:08 MA [id number]) Balance Tests Other Other Balance Tests Performed DGI- score PT-OP-G Mobility & Gait Start: 01/18/22 17:13 Freq: Status: Active Protocol: Document 01/21/22 09:02 SAK (Rec: 01/25/22 14:16 [facility] [id number]) OP Mobility Evaluation Bed Mobility Rolling indep Supine to and from Sit indep Transfers Sit to Stand indep, min to no use of hands OP Gait Assessment Gait Gait Assistance Required: Independent Able to Maintain Weight Bearing Status No During Gait Gait Deviations General Gait Pattern Decreased Stride Length, Decreased Feet Clearance,Wide Based Gait Factors Limiting Gait Function Factors Limiting Gait Function Poor Balance Stair Climbing Evaluation Evaluation Level of Assist On Stairs Independent Devices Stair Climbing Assistive Devices Left Railing,Right Railing Technique/Endurance Stair Climbing Direction Ascend and Descend PT-OP-H Neuro Start: 01/18/22 17:13 Freq: Status: Active Protocol: Document 01/21/22 09:02 [facility] (Rec: 01/25/22 14:16 [facility] [id number]) Sensation Evaluation Gross Sensation Gross Sensation WNL PT-OP-M Strength Start: 01/18/22 17:13 Freq: Status: Active Protocol: Document 01/21/22 09:02 [facility] (Rec: 01/25/22 14:16 [facility] [id number]) Hip Strength Hip Manual Muscle Testing charleen Flexion (L2) 4 Good Extension (S1) 4- Good- Abduction 4- Good- External Rotation 4 Good Internal Rotation 4 Good Knee Strength Knee Manual Muscle Testing charleen Flexion (S2) 5 Normal Extension (L3) 5 Normal Ankle/Foot Strength Ankle and Foot Manual Muscle Testing charleen Dorsiflexion (L4) 4 Good Plantarflexion (S1) 4 Good PT-OP-T Assessment and Plan Start: 01/18/22 17:13 Freq: Status: Active Protocol: Document 03/30/22 09:03 [facility] (Rec: 03/30/22 09:47 [facility] [id number]) Physical Therapy Assessment Goals Two Impairment unsteady gait Impairment Dynamic gait index Short Term Goal (STG) Improve DGI score to at least 20/24 as measure of improved safety with gait in the home and community 02/15/22- DGI score 24 STG Duration goal met Plan Consultant Goal (LTG) Improve DGI score to at least 22/24 as measure of improved safety with gait in the home and community. Patient able to resume taking regular walks for exercise regularly, using assistive device as needed for safety. LTG Duration goal met One Impairment balance dysfunction, high risk for falls Impairment Abreu Balance score 36/56; high risk for falls Short Term Goal (STG) Improve Abreu to at least 46/56 as measure of decrease in fall risk STG Duration goal met Custodial Goal (LTG) Improve Abreu to at least 51/56 as measure of decrease in fall risk and improved mobility in the home and community LTG Duration goal met Assessment Summary Assessment SLS improved to 4 sec, tandem stand 10 sec, sit to stand x 10 without UE support. Stair tap 11 sec, functional reach 10 sec. All PT goals achieved . Patient requests PT at this time. Physical Therapy Plan Frequency and Duration Frequency of Treatment 2x/Week Duration of Treatment 8 wks Plan of Care Start Date 01/21/22 Plan of Care End Date 03/23/22 Therapeutic Interventions Therapeutic Interventions Aquatic Therapy,Balance Training,Gait Training,Home Exercise Program,Neuromuscular Re-education,Self-Care/Home Management,Therapeutic Activities,Therapeutic Exercises Modalities Cold Pack/Ice Massage,Hot Packs Discharge Physical Therapy Discharge Reasons Goals Met
--- NOTE | 2022-03-30 17:50 | PT.OTN ---
Current Diagnoses Unsteadiness on feet (03/30/22) Other abnormalities of gait and mobility (03/30/22) Weakness (03/30/22) Physical Therapy Treatment Note PT-OP-A Visit Information Start: 01/18/22 17:13 Freq: Status: Active Protocol: Document 03/30/22 09:03 SAK (Rec: 03/30/22 09:47 SAK [id number]) Out-Patient Physical Therapy Visit Information Visit Information Visit Type Re-Evaluation Visit Start Time 09:03 Visit Stop Time 09:45 Total Visit Minutes 42 Visit Number 11 Number of [employer]ELOPER Visits 0 Precautions Precautions HTN, history of BPPV and Meniere's, wears hearing aids and glasses with progressive lenses PT-OP-B Current Condition Start: 01/18/22 17:13 Freq: Status: Active Protocol: Document 01/25/22 14:18 SAK (Rec: 01/25/22 14:26 SAK [id number]) Current Condition History of Current Condition Onset Date 5 years Current Complaints difficulty with balance History of Current Condition 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 Patient reports balance difficulties, has had multiple almostfalls, no specific situations, concerned won't be able to get up if falls. If goes for a walk carries a cane. Staggering noted by PT comes and goes but isn't uncommon. Denies dizziness at this time because I know what to do to avoid it. No exercises besides going for walks; walks up to 2 miles per day. Lives with , has stairs with railing, bars in shower. Treatment Goals Patient/Caregiver Goals IMprove balance, be more comfortable walking. PT-OP-C Subjective Start: 01/18/22 17:13 Freq: Status: Active Protocol: Document 02/25/22 09:26 MA (Rec: 02/25/22 10:15 MA [id number]) OP-PT Subjective Patient Comments Patient Comments I feel like my balance has improved but I think there is some parts of my balance that can never be fixed. PT-OP-D Balance Start: 01/18/22 17:13 Freq: Status: Active Protocol: Document 02/15/22 10:19 MA (Rec: 02/15/22 11:08 MA [id number]) Balance Tests Other Other Balance Tests Performed DGI- score PT-OP-G Mobility & Gait Start: 01/18/22 17:13 Freq: Status: Active Protocol: Document 01/21/22 09:02 [facility] (Rec: 01/25/22 14:16 [facility] [id number]) OP Mobility Evaluation Bed Mobility Rolling indep Supine to and from Sit indep Transfers Sit to Stand indep, min to no use of hands OP Gait Assessment Gait Gait Assistance Required: Independent Able to Maintain Weight Bearing Status No During Gait Gait Deviations General Gait Pattern Decreased Stride Length, Decreased Feet Clearance,Wide Based Gait Factors Limiting Gait Function Factors Limiting Gait Function Poor Balance Stair Climbing Evaluation Evaluation Level of Assist On Stairs Independent Devices Stair Climbing Assistive Devices Left Railing,Right Railing Technique/Endurance Stair Climbing Direction Ascend and Descend PT-OP-H Neuro Start: 01/18/22 17:13 Freq: Status: Active Protocol: Document 01/21/22 09:02 [facility] (Rec: 01/25/22 14:16 [facility] [id number]) Sensation Evaluation Gross Sensation Gross Sensation WNL PT-OP-M Strength Start: 01/18/22 17:13 Freq: Status: Active Protocol: Document 01/21/22 09:02 [facility] (Rec: 01/25/22 14:16 [facility] [id number]) Hip Strength Hip Manual Muscle Testing charleen Flexion (L2) 4 Good Extension (S1) 4- Good- Abduction 4- Good- External Rotation 4 Good Internal Rotation 4 Good Knee Strength Knee Manual Muscle Testing charleen Flexion (S2) 5 Normal Extension (L3) 5 Normal Ankle/Foot Strength Ankle and Foot Manual Muscle Testing charleen Dorsiflexion (L4) 4 Good Plantarflexion (S1) 4 Good PT-OP-Q Treatments Start: 01/18/22 17:13 Freq: Status: Active Protocol: Document 03/30/22 09:03 [facility] (Rec: 03/30/22 09:47 [facility] [id number]) Cardio Equipment Recumbent Stepper (Sci-Fit) Duration (Minutes) 8 Resistance 2.5 Seat Position 14 Therapeutic Exercises Sitting Exercises ankle df Resistance L2 TB added Reps/Minutes 10x Standing Exercises Sit<>stands Equipment Used std height chair Reps/Minutes x10 Comments all independent, no UE use Gait Training Gait Activity Uneven surfaces Description outdoor walking Device Used none Level of Assistance SBA-CGA Surface uneven Distance/Duration 5' Comments grass, gravel, curbs, stairs with single rail and 2 with no rail unpredictable commands Treatment Focus balance and safety Comments fwd, back, december, fast, slow, head turns, 180 degree turns.. .. Neuro Re-Education Treatment Balance Activities obstacle course Comments blue foam, lui foam, 2 step, 4 step, 6 step stepping over and onto various objects with even and uneven ground between tandem gait Equipment rail prn Reps/Duration 15 ft x 2 PT-OP-T Assessment and Plan Start: 01/18/22 17:13 Freq: Status: Active Protocol: Document 03/30/22 09:03 [facility] (Rec: 03/30/22 09:47 [facility] [id number]) Physical Therapy Assessment Goals Two Impairment unsteady gait Impairment Dynamic gait index Short Term Goal (STG) Improve DGI score to at least 20/24 as measure of improved safety with gait in the home and community 02/15/22- DGI score 19/24 STG Duration goal met Unhairing Inspector Goal (LTG) Improve DGI score to at least 22/24 as measure of improved safety with gait in the home and community. Patient able to resume taking regular walks for exercise regularly, using assistive device as needed for safety. LTG Duration goal met One Impairment balance dysfunction, high risk for falls Impairment Abreu Balance score 36/56; high risk for falls Short Term Goal (STG) Improve Abreu to at least 46/56 as measure of decrease in fall risk STG Duration goal met Unhairing Inspector Goal (LTG) Improve Abreu to at least 51/56 as measure of decrease in fall risk and improved mobility in the home and community LTG Duration goal met Assessment Summary Assessment SLS improved to 4 sec, tandem stand 10 sec, sit to stand x 10 without UE support. Stair tap 11 sec, functional reach 10 sec. All PT goals achieved . Patient requests PT at this time. Physical Therapy Plan Frequency and Duration Frequency of Treatment 2x/Week Duration of Treatment 8 wks Plan of Care Start Date 01/21/22 Plan of Care End Date 03/23/22 Therapeutic Interventions Therapeutic Interventions Aquatic Therapy,Balance Training,Gait Training,Home Exercise Program,Neuromuscular Re-education,Self-Care/Home Management,Therapeutic Activities,Therapeutic Exercises Modalities Cold Pack/Ice Massage,Hot Packs Discharge Physical Therapy Discharge Reasons Goals Met
== END 2022-05-31 13:15 ==
LOC: PHYS 09:00
PROVIDERS: Family Provider Internal Medicine; PCP Internal Medicine; Referring Provider Internal Medicine; Visit Provider Internal Medicine
DX: R53.1 Weakness (principal); R26.81 Unsteadiness on feet; R26.89 Other abnormalities of gait and mobility
CPT/HCPCS: 97110; 97112; 97116; 97162; 97530; 97535

== ENCOUNTER → 2022-06-07 10:42 | Outpatient (CLI) | payer MEDICARE, OTHER, SELFPAY ==
--- NOTE | 2022-06-07 10:45 | DI.CT.S_ITS ---
PROCEDURE: CT CHEST WO CON INDICATIONS: f/u on pulmonary nodules TECHNIQUE: Noncontrast 2.0-2.5 mm thick sections acquired from the pulmonary apices to the posterior costophrenic angles. 7 mm thick axial MIP and 5 mm coronal and sagittal reformats were then acquired. A low radiation dose technique was utilized. COMPARISON: [facility], CT, CT CHEST WO CON, 05/18/2021, 8:07. FINDINGS: Image quality: Diagnostic, given the low radiation dose technique. Lungs and pleura: Previously measured pulmonary nodules are as follows: 1. Right inferior major fissure pulmonary nodule, significantly increased in size. Previous image 186/3, it measured 0.5 x 0.6 cm. On current image 211/3 it measures 1.5 x 1.2 cm. 2. Inferior lateral right middle lobe, previous image 226 measured 0.6 cm. Current image 220 2 May be slightly decreased in size, measuring 0.6 x 0.4 cm. 3. Left upper lobe, unchanged, previous image 99/3 measuring 0.8 x 0.7 cm. Current image 87/3 measuring 0.8 x 0.7 cm. 4. Unchanged left upper lobe, previous image 187/3 and current image 168/3, 5 mm. Other small pulmonary nodules are stable. Unchanged bilateral upper lung field predominant emphysematous change. Unchanged mild bibasilar pulmonary fibrosis. Mediastinum: Heart size is normal. No pericardial effusion. At least moderate coronary artery calcifications. No mediastinal adenopathy by size criteria. Thoracic aorta and central pulmonary arteries are normal in size. Esophagus is normal in caliber. No hiatal hernia. Bones and chest wall: No suspicious bony lesions. No acute vertebral body compression fractures. Multiple old compressions, with increased thoracic kyphosis. No axillary or supraclavicular adenopathy by size criteria. Thyroid gland is atrophic. Abdomen: Visualized upper abdomen solid organs and bowel loops appear normal in the absence of contrast. IMPRESSION: 1. A single nodular pulmonary lesion is increased in size compared to the prior studies. However, this is of uncertain significance, as it may potentially be a benign lymph node. It is present in the inferior right major fissure. The other pulmonary nodules are stable. 2. Emphysematous change and bibasilar pulmonary fibrosis. 3. Coronary artery disease. 4. Osteoporosis. Comment: Consider six-month follow-up CT to re-evaluate the inferior right fissural pulmonary nodule. Fleischner Society criteria for SOLID lung nodule followup. Nodule size (mm)Low-risk patientHigh-risk patient<6 (single or multiple)No routine followup.Optional CT at 12 months. 6-8 (single or multiple)CT at 6-12 months, then optional CT at 18-24 mo.CT at 6-12 months, then CT at 18-24 months. >8 (single)CT at 3 months, PET-CT, or biopsy. Same as for low-risk pts. >8 (multiple)CT at 3-6 months, then optional CT at 18-24 mo.CT at 3-6 months, then CT at 18-24 months. Fleischner Society criteria for SUB-SOLID lung nodule followup. Solitary pure ground-glass nodules<6 mm (ground glass or part solid)No followup needed. 6 mm or larger (ground glass)CT at 6-12 months to confirm persistence, then CT every 2 years until 5 years.6 mm or larger (part solid)CT at 3-6 months to confirm persistence, then annual CT until 5 years if unchanged and solid component remains <6 mm. Multiple sub-solid nodules<6 mmCT at 3-6 months, then CT consider at 2 & 4 years for high risk patients. [address] at 3-6 months. Subsequent management based on most suspicious lesions. Recommendations do not apply to lung cancer screening, patients with immunosuppression, or patients with known primary cancer. Dictated by: Florencio Galdamez M.D. on 06/07/2022 at 14:50 Approved by: Florencio Galdamez M.D. on 06/07/2022 at 15:06
== END ==
PROVIDERS: Family Provider Internal Medicine; PCP Internal Medicine; Referring Provider Internal Medicine Hematology & Oncology; Visit Provider Internal Medicine Hematology & Oncology
DX: C82.90 Follicular lymphoma, unspecified, unspecified site (principal); R91.8 Other nonspecific abnormal finding of lung field; D69.6 Thrombocytopenia, unspecified; J84.10 Pulmonary fibrosis, unspecified; I25.10 Atherosclerotic heart disease of native coronary artery without angina pectoris; M81.0 Age-related osteoporosis without current pathological fracture
CPT/HCPCS: 71250

== ENCOUNTER → 2022-10-12 09:26 | Outpatient (CLI) | payer MEDICARE, OTHER, SELFPAY ==
[2022-10-12 10:53] LABS: COVID19 -Nasal RAPID Negative (Negative)
== END ==
PROVIDERS: Family Provider Internal Medicine; PCP Internal Medicine; Visit Provider Surgery
DX: Z20.822 Contact with and (suspected) exposure to COVID-19 (principal); Z01.812 Encounter for preprocedural laboratory examination
CPT/HCPCS: 87635; C9803

== ENCOUNTER 2022-10-13 09:46 | Day surgery (SDC) | payer MEDICARE, OTHER, SELFPAY ==
[2022-10-13] VITALS (7 sets, daily range): BP systolic 73–150; BP diastolic 45–80; PULSE 63–86; RESP 14–17; TEMP 36.2–36.6; O2SAT 94–96; BMI 26.6
--- NOTE | 2022-10-13 | PATH_ITS ---
[facility] Accession Number: [id number] . 01 Material submitted: . PART A: colon - TRANSVERSE COLON POLYPS X4 PART B: cecum - CECAL PART C: colon - RIGHT COLON POLYPS X4 PART D: colon - DESCENDING COLON POLYP . 01 Diagnosis: A. Transverse Colon Polyps: Tubular adenomas (four polyps removed). . B. Cecum, Biopsies: Colonic mucosa with no diagnostic abnormality. Negative for active, chronic, and microscopic colitis. Negative for dysplasia and malignancy. Additional step sections examined. . C. Right Colon Polyps: Tubular adenomas (four polyps removed). . D. Descending Colon Polyp: Tubular adenoma. MRV 10/18/2022 1615 Local . 01 Electronically signed: . Sebastian Morales MD, PhD, Pathologist NPI- [id number] . 01 Gross description: . Part A: TRANSVERSE COLON POLYPS X4: Received in formalin are multiple fragment(s) of jesus, soft tissue measuring 2.0 x 0.5 x 0.1 cm in aggregate submitted entirely in 1 cassette(s) Part B: CECAL: Received in formalin are 2 fragment(s) of jesus, soft tissue measuring 0.2 x 0.1 x 0.1 cm to 0.2 x 0.1 x 0.1 cm submitted entirely in 1 cassette(s) Part C: RIGHT COLON POLYPS X4: Received in formalin are multiple fragment(s) of jesus, soft tissue measuring 2.5 x 0.5 x 0.1 cm in aggregate submitted entirely in 1 cassette(s) Part D: DESCENDING COLON POLYP: Received in formalin are multiple fragment(s) of jesus, soft tissue measuring 1.0 x 0.5 x 0.1 cm in aggregate submitted entirely in 1 cassette(s) /CPE 10/14/2022 0640 Local . 01 Pathologist provided ICD-10: D12.3, D12.6, D12.4, R19.4 . 01 CPT . 002982, 455087, 468687, [id number] Specimen Comment: A courtesy copy of this report has been sent to [phone], [phone] Specimen Comment: [id number] Performed at: 01 [facility] [address] [place] [address], [place], [place] [id number] MD Artis Bolivar MD Phone: [phone]
[2022-10-13] MEDS: LACTATED RINGERS 1,000 ML 42 ML IV (10:10)
--- NOTE | 2022-10-13 10:32 | PM.HP.1 ---
History of Present Illness History of Present Illness Date Patient Seen: 10/13/22 Time Patient Seen: 10:32 Chief complaint: DX COLONOSCOPY Narrative: I reviewed my recent office note. No significant changes. The patient does note improvement with fiber supplementation. He is more regular at this point. Patient History Medical History Easy bruisability Enlarged prostate Hx of cardiac arrhythmia Hx of cataract Hypertension Thrombocytopenia Surgical History History of left hip replacement Hx of appendectomy Hx of bilateral cataract extraction (~2015) Family & Social History Social History: household members spouse Tobacco & Substance use: Tobacco type cigarettes Smoking Status Former smoker alcohol intake current alcohol intake frequency 0-2 drinks per day Substance Use Type does not use Meds Home Medications and Allergies Home Medications Medication Instructions Recorded Confirmed Type metoprolol succinate 50 mg 50 mg PO QDAY ##0 06/07/12 10/13/22 History tablet,extended release 24 hr (Toprol XL) lisinopril 10 mg tablet 40 mg PO QDAY ##0 08/17/16 10/13/22 History timolol 0.25 % eye drops 1 drp EYE-BOTH BID 08/23/19 10/13/22 History amlodipine 5 mg tablet 5 mg PO DAILY 08/29/19 10/13/22 History latanoprost 0.005 % eye drops 1 drp EYE-BOTH DAILY 08/29/19 10/13/22 History Allergies Allergy/AdvReac Type Severity Reaction Status Date / Time No Known Drug Allergies Allergy Verified 10/13/22 10:16 Review of Systems Review of Systems ROS: Yes All systems reviewed with the patient and are negative except as otherwise documented Exam Const General: cooperative HENMT Head: normal to inspection Eyes General: appearance normal, both eyes and all related structures Neck Neck: normal visual inspection Chest Chest: normal inspection of the chest Resp Effort & Inspection: normal respiratory effort Cardio Rate: regular rate GI Inspection: normal to inspection Skin General: no rashes or lesions noted Neuro General: patient alert and patient awake Extrem General: normal to inspection and edema Psych Appearance: grossly normal Assessment & Plan Assessment & Plan narrative: 87-year-old male with a personal history of colon polyps and abnormal imaging with a background of lymphoma. Colonoscopy is pursued today. Time Spent With Patient Critical Care time: I spent a total of [] minutes of critical care time on this patient's care today; this time is exclusive of procedural time.
--- NOTE | 2022-10-13 10:33 | PM.PREOP ---
Pre-operative Note COVID-19 COVID-19 status: Negative Result date/Date tested (Pos, Neg/Pending): 10/12/22 Criteria for continued procedure: Possibility delay results in more complex future surgery or treatment Interval Note History & Physical reviewed/Exam performed by Physician: Yes Changes to H&P: Yes ASA Class (for procedural sedation): III
--- NOTE | 2022-10-13 12:05 | PM.OP.COLON ---
Operative Date/Time/Diagnoses Date of procedure: 10/13/22 Time of procedure: 12:05 Pre-op diagnosis: History of lymphoma, personal history of colon polyps, abnormal imaging. Post-op diagnosis: same Procedure & Clinicians Study performed: Colonoscopy with cold forceps polypectomy, cold snare polypectomy, hot snare polypectomy. Same procedure as scheduled: Yes Indications: History of lymphoma, personal history of colon polyps, abnormal imaging. Surgeon: Navid Chopra Procedure Notes SCOAP/Timeout: Done Procedure in detail: After the risks and benefits were explained, written and verbal informed consent was obtained. The patient was brought into the procedure room and placed into the left lateral decubitus position. Please see anesthesia notes for sedation details. Digital rectal examination was accomplished. The scope was introduced into the patient and advanced under direct visualization to the cecum as identified by the appendiceal orifice and ileocecal valve. The scope was slowly withdrawn to carefully examine the mucosa for any defects or lesions. Comprehensive imaging was accomplished throughout the rectum including the dentate line. The colon was decompressed, the scope was then removed from the patient who tolerated the procedure well. Bowel prep adequate Adult colonoscope Scope withdrawal time: 31 minutes Sedation minutes: 41 Complications: none Impression: Mild internal hemorrhoids grade 1 to grade 2 were noted. Diverticulosis was seen in the left colon. I did not appreciate any abnormalities in the cecum. Random cecal biopsies were taken for exclusion of occult lymphoma. The terminal ileum was interrogated and appeared visually normal. In the cecum and ascending colon there were [address] of hot snare, cold snare, and cold forceps. These ranged in size from 4 mm up to approximately 10 mm. They were sessile. In the transverse colon there were another [address] of hot and cold snare polypectomy. These ranged in size from 5 mm up to approximately 10 mm. They were sessile. In the descending colon there was an approximately 12 mm sessile polyp on the apex of a fold removed with hot snare. There was a tattoo evident in the proximal transverse colon. One of the sessile polyps that we removed was found within the vicinity of the previously placed tattoo. Endoscopic diagnosis 1. Multiple colon polyps 2. Diverticulosis 3. Grade 2 hemorrhoids 4. Visually unremarkable cecum Post-procedure Plan for aftercare: 1. Await histopathology. 2. Follow up Oncology. Disposition: PACU
== END 2022-10-13 12:40 | disposition home or self-care (01) ==
PROVIDERS: Family Provider Internal Medicine; PCP Internal Medicine; Referring Provider Internal Medicine Gastroenterology; Visit Provider Internal Medicine Gastroenterology
PROC: 0DJD8ZZ Inspection of Lower Intestinal Tract, Via Natural or Artificial Opening Endoscopic (ICD-10-PCS; CPT 45378; principal; 2022-10-13 11:00)
DX: Z12.11 Encounter for screening for malignant neoplasm of colon (principal); Z86.010 Personal history of colon polyps; Z85.72 Personal history of non-Hodgkin lymphomas; D12.3 Benign neoplasm of transverse colon; D12.4 Benign neoplasm of descending colon; D12.6 Benign neoplasm of colon, unspecified
CPT/HCPCS: 45385; 45380; J2704; J3010

== ENCOUNTER → 2022-12-08 09:08 | Outpatient (CLI) | payer MEDICARE, OTHER, SELFPAY ==
--- NOTE | 2022-12-08 09:15 | DI.CT.S_ITS ---
PROCEDURE: CT CHEST WO CON INDICATIONS: pulmonary nodule TECHNIQUE: Noncontrast 2.0-2.5 mm thick sections acquired from the pulmonary apices to the posterior costophrenic angles. 7 mm thick axial MIP and 5 mm coronal and sagittal reformats were then acquired. A low radiation dose technique was utilized. COMPARISON: [facility], CT, CT CHEST WO CON, 05/27/2020, 13:13. [facility], CT, CT CHEST WO CON, 05/18/2021, 8:07. [facility], CT, CT CHEST WO CON, 06/07/2022, 10:59. FINDINGS: Image quality: Diagnostic, given the low radiation dose technique. Lungs and pleura: There is moderate centrilobular emphysema. Interlobular septal thickening at the lung bases suggests early fibrotic changes. Focal inter fissural thickening is redemonstrated within the right oblique fissure unchanged from the study dated May 27, 2020 (series 3/image 237). A 8 mm pulmonary nodule is redemonstrated within the posterior aspect of the left upper lobe unchanged from 2020 (series 3/image 104). Mediastinum: Heart size is normal. No pericardial effusion. No mediastinal adenopathy by size criteria. Thoracic aorta and central pulmonary arteries are normal in size. Scattered atheromatous calcifications are present within the aortic arch. Esophagus is normal in caliber. No hiatal hernia. Bones and chest wall: No suspicious bony lesions. No vertebral body compression fractures. No axillary or supraclavicular adenopathy by size criteria. Thyroid gland is unremarkable . Abdomen: Visualized upper abdomen solid organs and bowel loops appear normal in the absence of contrast. IMPRESSION: 1. Stable pulmonary nodules when compared with the study dated May 27, 2020. 2. Emphysematous and fibrotic change. 3. Aortic atherosclerosis. Fleischner Society criteria for SOLID lung nodule followup. Nodule size (mm)Low-risk patientHigh-risk patient<6 (single or multiple)No routine followup.Optional CT at 12 months. 6-8 (single or multiple)CT at 6-12 months, then optional CT at 18-24 mo.CT at 6-12 months, then CT at 18-24 months. >8 (single)CT at 3 months, PET-CT, or biopsy. Same as for low-risk pts. >8 (multiple)CT at 3-6 months, then optional CT at 18-24 mo.CT at 3-6 months, then CT at 18-24 months. Fleischner Society criteria for SUB-SOLID lung nodule followup. Solitary pure ground-glass nodules<6 mm (ground glass or part solid)No followup needed. 6 mm or larger (ground glass)CT at 6-12 months to confirm persistence, then CT every 2 years until 5 years.6 mm or larger (part solid)CT at 3-6 months to confirm persistence, then annual CT until 5 years if unchanged and solid component remains <6 mm. Multiple sub-solid nodules<6 mmCT at 3-6 months, then CT consider at 2 & 4 years for high risk patients. [address] at 3-6 months. Subsequent management based on most suspicious lesions. Recommendations do not apply to lung cancer screening, patients with immunosuppression, or patients with known primary cancer. Dictated by: Yesica Garcia M.D. on 12/08/2022 at 10:21 Approved by: Yesica Garcia M.D. on 12/08/2022 at 10:27
== END ==
PROVIDERS: Referring Provider Internal Medicine Hematology & Oncology; Visit Provider Internal Medicine Hematology & Oncology
DX: R91.8 Other nonspecific abnormal finding of lung field (principal); I70.0 Atherosclerosis of aorta
CPT/HCPCS: 71250

== ENCOUNTER → 2023-03-14 09:29 | Outpatient (CLI) | payer MEDICARE, OTHER, SELFPAY ==
[2023-03-14 10:06] LABS: Add Manual Diff / Slide Review NO; Basophils Absolute Auto 0 /uL (0-100); Basophils Percent Auto 0.7 % (0-2); Eosinophils Absolute Auto 200 /uL (0-450); Eosinophils Percent Auto 3.3 % (2-4); Hematocrit 42.3 % (41-53); Hemoglobin 14.8 g/dL (13.5-17.5); Lymphocytes Absolute Auto 1200 /uL (1100-4500); Lymphocytes Percent Auto 26.3 % (25-40); Mean Corpuscular Hemoglobin 35.4 PG (26-34); Mean Corpuscular Volume 101.2 fL (80-100); Monocytes Absolute Auto 500 /uL (0-900); Monocytes Percent Auto 11.5 % (3-14); Neutrophils Absolute Auto 2700 /uL (1500-7000); Neutrophils Percent Auto 58.2 % (50-75); Platelet Count 130 X10^3/uL (150-400); Red Blood Cell Count 4.18 X10^6/uL (4.5-5.9); Red Cell Distribution Width 13.5 % (11.6-14.8); White Blood Cell Count 4.6 X10^3/uL (4.5-11.0)
[2023-03-14 10:21] LABS: C-Reactive Protein Quant < 0.5 mg/dL (<1.0)
[2023-03-14 10:26] LABS: Erythrocyte Sedimentation Rate 5 MM/HR (0-15)
== END ==
PROVIDERS: Referring Provider Ophthalmology; Visit Provider Ophthalmology
DX: G43.809 Other migraine, not intractable, without status migrainosus (principal)
CPT/HCPCS: 36415; 85025; 85651; 86140

== ENCOUNTER → 2023-10-12 08:58 | Outpatient (CLI) | payer MEDICARE, OTHER, SELFPAY ==
[2023-10-12 09:38] LABS: Add Manual Diff / Slide Review NO; Basophils Absolute Auto 0 /uL (0-100); Basophils Percent Auto 0.9 % (0-2); Eosinophils Absolute Auto 100 /uL (0-450); Eosinophils Percent Auto 2.6 % (2-4); Hematocrit 43.1 % (41-53); Hemoglobin 14.6 g/dL (13.5-17.5); Lymphocytes Absolute Auto 1400 /uL (1100-4500); Lymphocytes Percent Auto 26.7 % (25-40); Mean Corpuscular HGB Conc 33.9 % (30-36); Mean Corpuscular Volume 103.2 fL (80-100); Monocytes Absolute Auto 600 /uL (0-900); Monocytes Percent Auto 11.8 % (3-14); Neutrophils Absolute Auto 3100 /uL (1500-7000); Platelet Count 158 X10^3/uL (150-400); Red Blood Cell Count 4.18 X10^6/uL (4.5-5.9); Red Cell Distribution Width 14.1 % (11.6-14.8); White Blood Cell Count 5.3 X10^3/uL (4.5-11.0)
[2023-10-12 09:53] LABS: Alanine Aminotransferase 48 IU/L (<50); Albumin Globulin Ratio 1.4 (1.0-2.8); Alkaline Phosphatase 103 U/L (38-126); BUN Creatinine Ratio 17.1 (6-22); Blood Urea Nitrogen 19 mg/dL (9-20); Calcium 9.7 mg/dL (8.4-10.2); Carbon Dioxide 23 mmol/L (22-32); Chloride 106 mmol/L (98-107); Estimated Glomerular Filt Rate > 60 mL/min (>60); Globulin 2.8 g/dL (1.7-4.1); Glucose 112 mg/dL (80-110); HEMOLYSIS < 15 (0-50); Potassium 4.4 mmol/L (3.4-5.1); Sodium 137 mmol/L (137-145); Total Protein 6.8 g/dL (6.3-8.2)
[2023-10-14 16:01] LABS: Aspartate Aminotransferase 24 IU/L (17-59)
== END ==
LOC: LAB 09:00
PROVIDERS: PCP Family Medicine; Referring Provider Family Medicine; Visit Provider Family Medicine
DX: C82.90 Follicular lymphoma, unspecified, unspecified site (principal); D70.9 Neutropenia, unspecified; I10 Essential (primary) hypertension
CPT/HCPCS: 36415; 80053; 85025